=== PATIENT | male | born 1990 | race Caucasian/White ===

== ENCOUNTER 2024-03-06 20:27 | Observation (INO) | payer BC ==
--- NOTE | 2024-03-06 20:49 | ED ---
General Adult HPI - General Chief complaint: Abdominal Pain Stated complaint: abd pain Time Seen by Provider: 03/06/24 20:36 Source: patient, EMS, RN notes reviewed, old records reviewed Mode of arrival: EMS Limitations: no limitations - History of Present Illness Initial comments: Patient is a 33-year-old male presenting to the emergency department as a transfer from [facility]. Patient had abdominal discomfort starting this morning, progressively worsening since that time. Discomfort does increase with movement. Discomfort is currently 7/10. Patient occasionally has minimal nausea. No fevers however has had some chills. Patient did have elevated white blood cell count and CT scan concerning for early developing appendicitis - Related Data Allergies Allergy/AdvReac Type Severity Reaction Status Date / Time No Known Allergies Allergy Verified 03/06/24 20:37 Review of Systems ROS Statement: Those systems with pertinent positive or pertinent negative responses have been documented in the HPI. ROS Other: All systems not noted in ROS Statement are negative. Constitutional: Reports: chills. Denies: fever Eyes: Denies: eye pain Gastrointestinal: Reports: as per HPI, abdominal pain, nausea. Denies: vomiting Musculoskeletal: Denies: back pain Past Medical History Past Medical History: No Reported History Past Surgical History: Hernia Repair Additional Past Surgical History / Comment(s): hernia surgery in 2011 Smoking Status: Current every day smoker Past Alcohol Use History: None Reported Past Drug Use History: None Reported General Exam Limitations: no limitations General appearance: alert, in no apparent distress Head exam: Present: normocephalic Eye exam: Present: normal appearance Neck exam: Present: normal inspection Respiratory exam: Present: normal lung sounds bilaterally Cardiovascular Exam: Present: regular rate, normal rhythm GI/Abdominal exam: Present: soft, tenderness (Moderate tenderness right lower abdomen), guarding (Right lower abdomen), normal bowel sounds. Absent: distended, rebound, rigid, pulsatile mass Extremities exam: Present: normal inspection Neurological exam: Present: alert Psychiatric exam: Present: normal affect, normal mood Skin exam: Present: normal color Course Vital Signs 03/06/24 20:28 Temperature 98.4 F Pulse Rate 97 Respiratory 18 Rate Blood Pressure 121/67 O2 Sat by Pulse 98 Oximetry Medical Decision Making - Medical Decision Making Was pt. sent in by a medical professional or institution (, PA, CUSTOMER DATA TECHNICIAN, urgent care, hospital, or usp...) When possible be specific @ -Patient was sent from [facility] Did you speak to anyone other than the patient for history (EMS, parent, family, police, friend...)? What history was obtained from this source @ -I did speak with transferring physician Dr. Reynolds who did provide history Did you review nursing and triage notes (agree or disagree)? Why? @ -I reviewed and agree with nursing and triage notes Were old charts reviewed (outside hosp., previous admission, EMS record, old EKG, old radiological studies, urgent care reports/EKG's, usp records)? Report findings @ -Chart reviewed from [facility] Differential Diagnosis (chest pain, altered mental status, abdominal pain women, abdominal pain men, vaginal bleeding, weakness, fever, dyspnea, syncope, headac he, dizziness, GI bleed, back pain, seizure, CVA, palpatations, mental health, musculoskeletal)? @ -Differential Abdominal Pain Men: Appendicitis, cholecystitis, diverticulosis, ischemic bowel, pancreatitis, hepatitis, UTI, gastroenteritis, AAA, incarcerated hernia, bowel obstruction, constipation, inflammatory bowel, hepatitis, peptic ulcer disease, splenic infarction, perforated viscus, testicular torsion, this is not meant to be an all-inclusive list EKG interpreted by me (3pts min.). @ -As above X-rays interpreted by me (1pt min.). @ -None done CT interpreted by me (1pt min.). @ -None done U/S interpreted by me (1pt. min.). @ -None done What testing was considered but not performed or refused? (CT, X-rays, U/S, labs)? Why? @ -None What meds were considered but not given or refused? Why? @ -None Did you discuss the management of the patient with other professionals (professionals i.e. , PA, CUSTOMER DATA TECHNICIAN, lab, RT, psych nurse, social work job titles, teletype technician, teacher, homicide squad commanding officer, nurse case management)? Give summary @ -Case was also discussed with Dr. Mcgregor who will admit for surgical call. He would like patient to remain n.p.o. and antibiotics continued. Was smoking cessation discussed for >3mins.? @ -No Was critical care preformed (if so, how long)? @ -No Were there social determinants of health that impacted care today? How? (Homelessness, low income, unemployed, alcoholism, drug addiction, transportation, low edu. Level, literacy, decrease access to med. care, long term, rehab)? @ -No Was there de-escalation of care discussed even if they declined (Discuss DNR or withdrawal of care, Hospice)? DNR status @ -No What co-morbidities impacted this encounter? (DM, HTN, Smoking, COPD, CAD, Cancer, CVA, ARF, Chemo, Hep., AIDS, mental health diagnosis, sleep apnea, morbid obesity)? @ -None Was patient admitted / discharged? Hospital course, mention meds given and route, prescriptions, significant lab abnormalities, going to OR and other pertinent info. @ -Patient presents as a transfer from [facility] with concern for appendicitis. Chart reviewed. Patient updated. Patient will be admitted, admission orders written. Undiagnosed new problem with uncertain prognosis? @ -No Drug Therapy requiring intensive monitoring for toxicity (Heparin, Nitro, Insulin, Cardizem)? @ -No Were any procedures done? @ -No Diagnosis/symptom? @ -Appendicitis Acute, or Chronic, or Acute on Chronic? @ -Acute Uncomplicated (without systemic symptoms) or Complicated (systemic symptoms)? @ -Default Side effects of treatment? @ -No Exacerbation, Progression, or Severe Exacerbation? @ -No Poses a threat to life or bodily function? How? (Chest pain, USA, NC, pneumonia, PE, COPD, DKA, ARF, appy, cholecystitis, CVA, Diverticulitis, Homicidal, Suicidal, threat to staff... and all critical care pts) @ -No Disposition Clinical Impression: Acute appendicitis Disposition: ADMITTED IP TO THIS HOSP Is patient prescribed a controlled substance at d/c from ED?: No Referrals: None,Stated [Primary Care Provider] - 1-2 days Time of Disposition: 21:00
[2024-03-06] MEDS ORDERED: NALOXONE 0.4 MG/ML 1 ML VIAL IV PRN (21:00)
[2024-03-06] MEDS: HYDROmorphone 1 MG/ML 1 ML SYRINGE IVP PRN (21:21)
[2024-03-06] MEDS: SODIUM CHLORIDE 0.9% 1,000 ML IV SCH (21:28)
[2024-03-06] MEDS: ONDANSETRON 4 MG/2 ML VIAL IVP PRN (21:52)
[2024-03-06] MEDS: PIPERACILLIN-TAZOBACTAM 3.375 GM in SODIUM CHLORIDE 0.9% 100 ML IVPB SCH (23:38)
[2024-03-07] MEDS: PANTOPRAZOLE 40 MG/10 ML VIAL IV SCH (07:47)
[2024-03-07] MEDS: IV FLUID CONTINUATION 900 ML IV ONE (08:07)
--- NOTE | 2024-03-07 08:14 | P.GSHP ---
History of Present Illness H&P Date: 03/07/24 Chief Complaint: Right lower quadrant pain Is a 33-year-old male who has complaints of lower quadrant pain for 24 hours. Patient was worked up found to have evidence of acute appendicitis on CT. Past Medical History Past Medical History: No Reported History Past Surgical History: Hernia Repair Additional Past Surgical History / Comment(s): hernia surgery in 2011 Smoking Status: Current every day smoker Past Alcohol Use History: None Reported Past Drug Use History: None Reported Medications and Allergies Home Medications Medication Instructions Recorded Confirmed Type No Known Home Medications 03/07/24 03/07/24 History Allergies Allergy/AdvReac Type Severity Reaction Status Date / Time No Known Allergies Allergy Verified 03/06/24 20:37 Surgical - Exam Vital Signs Temp Pulse Resp BP Pulse Ox 98.4 F 97 18 121/67 98 03/06/24 20:28 03/06/24 20:28 03/06/24 20:28 03/06/24 20:28 03/06/24 20:28 - General well developed, well nourished, no distress - Eyes PERRL - ENT normal pinna - Neck no masses - Respiratory normal expansion - Cardiovascular Rhythm: regular - Abdomen Right lower quadrant pain Abdomen: soft Assessment and Plan Assessment: Acute appendicitis. Will perform laparoscopic appendectomy.
[2024-03-07] MEDS: diphenhydrAMINE 50 MG/ML 1 ML VIAL IVP STA (08:21)
[2024-03-07] MEDS: METOCLOPRAMIDE 5 MG/ML 2 ML VIAL IVP STA (08:22)
[2024-03-07] MEDS: DEXAMETHASONE SOD PHOSPHATE 4 MG/ML 1 ML VIAL IM STA (08:22)
[2024-03-07] MEDS: FAMOTIDINE 20 MG/2 ML VIAL IV STA (08:23)
[2024-03-07] MEDS: SCOPOLAMINE 1 MG/72 HR PATCH TRANSDERM STA (08:25)
[2024-03-07] MEDS: HEPARIN SODIUM,PORCINE 5,000 UNIT/ML 1 ML VIAL SQ STA (08:26)
[2024-03-07] MEDS ORDERED: ROCURONIUM 10 MG/ML (5 ML VIAL) IV ONE (08:48)
[2024-03-07] MEDS ORDERED: KETAMINE HCL IN 0.9 % NACL 50 MG/5 ML SYRINGE ONE (08:48)
[2024-03-07] MEDS ORDERED: PROPOFOL 10 MG/ML 20 ML VIAL IV ONE (08:48)
[2024-03-07] MEDS ORDERED: SUCCINYLCHOLINE CHLORIDE 200 MG/10 ML VIAL IV ONE (08:48)
[2024-03-07] MEDS ORDERED: fentaNYL (PF) 50 MCG/ML 2 ML AMP ONE (08:48)
[2024-03-07] MEDS ORDERED: KETOROLAC 15 MG/ML 1 ML VIAL ONE (08:48)
[2024-03-07] MEDS ORDERED: LIDOCAINE 1% INJ 10MG/ML (20 ML MDV) ONE (08:48)
[2024-03-07] MEDS ORDERED: SUGAMMADEX SODIUM 200 MG/2 ML SDV IV ONE (08:48)
[2024-03-07] MEDS: LIDOCAINE 1%-EPI 1:100,000 20 ML VIAL SQ ONE (09:11)
[2024-03-07] MEDS: LACTATED RINGERS 1,000 ML IV ONE (09:18)
[2024-03-07] MEDS ORDERED: HYDROmorphone 0.5 MG/0.5 ML SYRINGE IVP PRN (09:41)
[2024-03-07] MEDS ORDERED: ONDANSETRON 4 MG/2 ML VIAL IVP PRN (09:41)
[2024-03-07] MEDS ORDERED: HYDROcodone/APAP 5-325MG 1 EACH TAB PO PRN (09:41)
[2024-03-07] MEDS ORDERED: NALOXONE 0.4 MG/ML 1 ML VIAL IV PRN (09:41)
--- NOTE | 2024-03-07 09:41 | P.OP ---
Date of Procedure: 03/07/24 Preoperative Diagnosis: Acute appendicitis Postoperative Diagnosis: Acute appendicitis with microperforation Procedure(s) Performed: Laparoscopic appendectomy Anesthesia: CRISTOPHER Surgeon: Se Ventura Estimated Blood Loss (ml): 5 Pathology: other (Appendix) Condition: stable Disposition: PACU Operative Findings: Inflamed appendix with microperforation near base Description of Procedure: R the patient's placed on the operating table in the supine position. The patient received general anesthesia. The abdomen was prepped and draped in the usual sterile fashion. The skin was anesthetized 1% local Xylocaine at the trocar sites. Using an 11 blade the skin was incised at the umbilicus. The umbilicus was grasped with a [place] clamp and then a Veress needle was placed into the peritoneal cavity. Position of the Veress needle was confirmed with po sitive drop test. After adequate insufflation a 5 mm trocar was placed into the peritoneal cavity. The abdomen was further insufflated. And then the laparoscope was placed in the peritoneal cavity. Next a 5 mm trocar was placed in the midline suprapubic position. And then a 10 mm trocar was placed in the midline epigastric position. The patient was rotated with the right side up and in Trendelenburg. The appendix was visualized. The appendix appeared to be inflamed. The appendix was grasped and then using the Harmonic scissors the mesoappendix was divided. A PDS Endoloop was then placed around the base of the appendix. And then the appendix was divided using Harmonic scissors. The appendix was placed into an Endo Catch and brought out through the 10 mm trocar site. The abdomen was irrigated. There is no bleeding seen. The trochars withdrawn. The skin was closed interrupted 3-0 Monocryl suture. Dermabond dressing was applied. Patient was sent to recovery room in stable condition.
[2024-03-07] MEDS: HYDROmorphone 0.5 MG/0.5 ML SYRINGE IVP PRN (11:06)
[2024-03-07] MEDS: LACTATED RINGERS 1,000 ML IV SCH (13:25)
[2024-03-07] MEDS: KETOROLAC 15 MG/ML 1 ML VIAL IVP SCH (13:34)
[2024-03-07 19:36] LABS: HCT 41.8 % (39.6-50.0); HGB 13.9 g/dL (13.0-17.0); MCH 30.3 pg (27.0-32.0); MCHC 33.3 g/dL (32.0-37.0); MCV 91.3 FL (80.0-97.0); Mean Platelet Volume 10.9 FL (9.5-12.2); NRBC Per 100 WBC 0 X 10*3/uL (0.00-0.01); Platelet Count 291 X 10*3/uL (140-440); RBC 4.58 X 10*6/uL (4.40-5.60); RDW 13.2 % (11.5-14.5); WBC 32.29 X 10*3/uL (4.50-10.00)
[2024-03-07 20:16] LABS: Basophils # (A) 0.05 X 10*3/uL (0.00-0.10); Basophils % (A) 0.2 %; Eosinophils # (A) 0 X 10*3/uL (0.04-0.35); Eosinophils % (A) 0 %; Lymphocytes # (A) 0.83 X 10*3/uL (0.90-5.00); Lymphocytes % (A) 2.6 %; Monocytes # (A) 2.14 X 10*3/uL (0.20-1.00); Monocytes % (A) 6.6 %; Neutrophils # (A) 28.88 X 10*3/uL (1.80-7.70); Neutrophils % (A) 89.4 %; RBC Morphology Normal (Normal)
[2024-03-07 20:53] LABS: BUN/Creat Ratio 20.86 Ratio (12.00-20.00); Blood Urea Nitrogen 14.6 mg/dL (9.0-27.0); Chloride 105 mmol/L (96-109); Glucose 136 mg/dL (70-110); Potassium 4.7 mmol/L (3.5-5.5); Sodium 139 mmol/L (135-145)
[2024-03-07 20:54] LABS: ALT 16 U/L (10-49); AST 14 U/L (14-35); Albumin 4.1 g/dL (3.8-4.9); Albumin/Globulin Ratio 1.86 Ratio (1.60-3.17); Alkaline Phosphatase 74 U/L (41-126); Calcium 9.1 mg/dL (8.7-10.3); Carbon Dioxide 22.1 mmol/L (21.6-31.8); Globulin 2.2 g/dL (1.6-3.3); Total Bilirubin 0.6 mg/dL (0.3-1.2); Total Protein 6.3 g/dL (6.2-8.2)
[2024-03-07] MEDS: METOCLOPRAMIDE 5 MG/ML 2 ML VIAL IVP PRN (21:33)
[2024-03-08 05:32] LABS: Prothrombin Time 11.1 sec (10.0-12.5)
--- NOTE | 2024-03-08 07:26 | P.CONS ---
History of Present Illness - Reason for Consult Consult date: 03/07/24 Perforated appendicitis Requesting physician: Se Ventura - Chief Complaint Abdominal pain x 1 day - History of Present Illness Patient is a 33-year-old male with no significant past medical history current everyday smoker presenting to [facility] for evaluation of abdominal pain that started the day before presentation to the ER patient initially thought it was mostly gas however the patient symptom persisted and has progressively got worse mostly to the right side of the normal area describing it to be sharp about 7 out of 10 without any radiation with associated nausea but no vomiting and did have some chills patient was evaluated outside facility with the patient did have a elevated white count CT was concerning for early developing appendicitis patient was transferred to [facility] for surgical treatment patient was taken to the OR noticed to have acute appendicitis with microperforation status post laparoscopic appendectomy patient has been admitted to the hospital infectious he was consulted for further management of antibiotic therapy patient on presentation to this hospital has been afebrile patient was not tachycardic or hypotensive and not hypoxic no need for supplemental oxygen he did have white count of 32,000 with a left shift creatinine 0.7 electrolytes are normal liver enzymes are normal Review of Systems Positive point and negatives has been mentioned in the HPI, complete review of systems was performed and all other systems are negative Past Medical History Past Medical History: No Reported History Past Surgical History: Hernia Repair Additional Past Surgical History / Comment(s): hernia surgery in 2011 Smoking Status: Current every day smoker Past Alcohol Use History: None Reported Past Drug Use History: None Reported Medications and Allergies Home Medications Medication Instructions Recorded Confirmed Type No Known Home Medications 03/07/24 03/07/24 History Allergies Allergy/AdvReac Type Severity Reaction Status Date / Time No Known Allergies Allergy Verified 03/07/24 08:38 Physical Exam Vitals: Vital Signs Temp Pulse Pulse Pulse Resp BP BP 03/07/24 11:16 84 18 104/72 03/07/24 11:00 80 18 103/67 03/07/24 10:46 103 H 18 116/64 03/07/24 10:30 99 18 113/63 03/07/24 10:15 99 18 119/70 03/07/24 10:00 101 H 18 115/67 03/07/24 09:45 109 H 18 136/67 03/07/24 09:38 98.8 F 121 H 20 149/72 03/07/24 08:08 98.5 F 113 H 16 147/76 03/07/24 06:30 104 H 18 145/126 03/07/24 03:44 98.5 F 75 19 125/88 03/06/24 23:38 89 18 129/83 03/06/24 22:40 90 18 126/78 03/06/24 20:28 98.4 F 97 18 121/67 Pulse Ox 03/07/24 11:16 98 03/07/24 11:00 98 03/07/24 10:46 98 03/07/24 10:30 98 03/07/24 10:15 100 03/07/24 10:00 100 03/07/24 09:45 100 03/07/24 09:38 100 03/07/24 08:08 96 03/07/24 06:30 97 03/07/24 03:44 97 03/06/24 23:38 97 03/06/24 22:40 98 03/06/24 20:28 98 Intake and Output 03/06/24 03/07/24 03/07/24 22:59 06:59 14:59 Intake Total 1950 Output Total 5 Balance 1944 Intake: IV 1949 Output: Estimated Blood Loss 5 Other: Weight 111.13 kg GENERAL DESCRIPTION: Middle-aged male lying in bed, no distress. No tachypnea or accessory muscle of respiration use. HEENT: Shows Pallor , no scleral icterus. Oral mucous membrane is dry. No pharyngeal erythema or thrush NECK: Trachea central, no thyromegaly. LUNGS: Unlabored breathing. Clear to auscultation anteriorly. No wheeze or crackle. HEART: S1, S2, regular rate and rhythm. No loud murmur ABDOMEN: Soft, mild tenderness , no guarding or rigidity, no organomegaly EXTREMITIES: No edema of feet. SKIN: No rash, no masses palpable. NEUROLOGICAL: The patient is awake, alert, oriented x3, mood and affect normal. Results CBC & Chem 7: 03/07/24 14:26 03/07/24 14:26 Assessment and Plan (1) Acute perforated appendicitis Current Visit: Yes Status: Acute Code(s): K35.32 - AC APPENDICITIS W PERF, LOC PERITONITIS, & GANGR, W/O ABSCS SNOMED Code(s): 539532087 (2) Peritonitis Current Visit: Yes Status: Acute Code(s): K65.9 - PERITONITIS, UNSPECIFIED SNOMED Code(s): 18780654 (3) Leukocytosis Current Visit: Yes Status: Acute Code(s): D72.829 - ELEVATED WHITE BLOOD CELL COUNT, UNSPECIFIED SNOMED Code(s): 695797147 Plan: 1patient presented to hospital with abdominal pain and this patient who did have elevated white count abnormal CT suggestive of appendicitis in this patient who is s/p laparoscopic appendectomy with evidence of appendicitis with microperforation will need to cover for the enteric gram-negative both aerobes and anaerobes 2-Zosyn 3.375 g every 8 hours and will monitor his clinical course closely Family at the bedside questions and concerns We will follow on clinical condition and cultures to further adjust medication if needed Thank you for this consultation we will follow the patient along with you Dictation was produced using blinkbox dictation software. please excuse any grammatical, word or spelling errors. Time with Patient: Greater than 30
[2024-03-08] MEDS: ENOXAPARIN 40 MG/0.4 ML SYRINGE SQ SCH (09:18)
[2024-03-08] MEDS: ACETAMINOPHEN TAB 325 MG TAB PO PRN (09:18)
[2024-03-08 09:53] LABS: Basophils % (A) 0 %; Eosinophils # (A) 0.1 k/uL (0-0.7); Eosinophils % (A) 1 %; HCT 40.6 % (39.0-53.0); Lymphocytes # (A) 3.5 k/uL (1.0-4.8); Lymphocytes % (A) 21 %; MCH 30.2 pg (25.0-35.0); MCHC 31.9 g/dL (31.0-37.0); MCV 94.8 fL (80.0-100.0); Mean Platelet Volume 8.7; Monocytes # (A) 0.6 k/uL (0-1.0); Monocytes % (A) 4 %; Neutrophils # (A) 12.6 k/uL (1.3-7.7); Neutrophils % (A) 74 %; Platelet Count 257 k/uL (150-450); RBC 4.29 m/uL (4.30-5.90); RDW 13.4 % (11.5-15.5)
--- NOTE | 2024-03-08 15:49 | P.PN ---
Subjective Progress Note Date: 03/08/24 CHIEF COMPLAINT: Acute appendicitis HISTORY OF PRESENT ILLNESS: Patient postop day #1 status post laparoscopic appendectomy. Pain is controlled. Tolerating diet. Having flatus. He has been up and ambulating. Denies any difficulty urinating. Afebrile. WBC is down from 13-17 Hgb 13 Patient seen and examined with Dr. Ventura PHYSICAL EXAM: VITAL SIGNS: Reviewed. GENERAL: Well-developed in no acute distress. ABDOMEN: Soft. Nondistended. Incision sites clean dry and intact NEUROLOGIC: Alert and oriented. Cranial nerves II through XII grossly intact. ASSESSMENT: 1. Acute appendicitis with microperforation 2. Leukocytosis PLAN: -Continue antibiotics. Patient being seen by infectious disease. -Repeat CBC in a.m. -Continue IV fluids -Continue pain management -Encourage patient to increase activity level -Encourage patient to use incentive spirometer -GI prophylaxis Protonix and DVT prophylaxis Lovenox Physician Pin Maker note has been reviewed by physician. Signing provider agrees with the documented findings, assessment, and plan of care. Objective - Vital Signs Vital signs: Vital Signs Temp 98.5 F 03/08/24 14:15 Pulse 64 03/08/24 14:15 Resp 14 03/08/24 14:15 BP 108/73 03/08/24 14:15 Pulse Ox 98 03/08/24 14:15 FiO2 Intake & Output 03/07/24 03/08/24 03/08/24 18:59 06:59 18:59 Intake Total 2668 236 Output Total 5 Balance 2663 236 Weight 111.13 kg Intake: IV 2550 Oral 118 236 Output: Estimated Blood Loss 5 Other: # Voids 1 1 3 # Bowel Movements 2 - Labs CBC & Chem 7: 03/08/24 09:02 03/07/24 14:26 Labs: Abnormal Lab Results - Last 24 Hours (Table) 03/07/24 03/07/24 03/08/24 Range/Units 14:26 14:26 09:02 WBC 32.29 H 17.0 H (4.50-10.00) X 10*3/uL RBC 4.29 L (4.30-5.90) m/uL Immature Gran # 0.39 H (0.00-0.04) X 10*3/uL Neutrophils # 28.88 H 12.6 H (1.80-7.70) X 10*3/uL Lymphocytes # 0.83 L (0.90-5.00) X 10*3/uL Monocytes # 2.14 H (0.20-1.00) X 10*3/uL Eosinophils # 0 L (0.04-0.35) X 10*3/uL BUN/Creatinine Ratio 20.86 H (12.00-20.00) Ratio Glucose 136 H (70-110) mg/dL
[2024-03-09 03:27] VITALS: TEMP 98.2
[2024-03-09 05:41] LABS: Basophils % (A) 0 %; Eosinophils # (A) 0.2 k/uL (0-0.7); Eosinophils % (A) 1 %; HCT 35.9 % (39.0-53.0); HGB 12.1 gm/dL (13.0-17.5); Lymphocytes # (A) 3.2 k/uL (1.0-4.8); Lymphocytes % (A) 24 %; MCHC 33.7 g/dL (31.0-37.0); MCV 95.1 fL (80.0-100.0); Monocytes # (A) 0.9 k/uL (0-1.0); Monocytes % (A) 7 %; Neutrophils # (A) 8.9 k/uL (1.3-7.7); Neutrophils % (A) 66 %; Platelet Count 227 k/uL (150-450); RBC 3.78 m/uL (4.30-5.90); RDW 13.3 % (11.5-15.5); WBC 13.5 k/uL (3.8-10.6)
--- NOTE | 2024-03-09 05:51 | P.CONS ---
History of Present Illness - Reason for Consult Consult date: 03/08/24 Medical management status post appendectomy - History of Present Illness This is a 33-year-old male who was admitted under surgery services who presented to the emergency department with severe abdominal pain that woke him up out of his sleep. Patient reports he had no prior pain noted in the abdomen and had worked the night before. Patient works midnight shift. Patient reports he follows with primary care provider out of the [facility] and reports of no significant history. Patient does smoke cigarettes and occasionally drinks alcohol and denies any other illicit drug use. Of note patient's white count wa s 32 on admission and patient mentioned he has had previous elevated white counts of unknown etiology. Would recommend outpatient follow-up with hematology for further evaluation. White count is trending down and 17 today and patient is afebrile status post laparoscopic appendectomy. Patient reports to feeling well and denies any significant discomfort. Patient reports is passing gas with no bowel movement as of yet. Patient is voiding with no difficulties and denies any nausea or vomiting. Incentive spirometer at the bedside and encouraged to use at least 10 times every hour while awake along with getting up with frequent walking around the halls. REVIEW OF SYSTEMS: CONSTITUTIONAL: No fever, no malaise, no fatigue. HEENT: No recent visual problems or hearing problems. Denied any sore throat. CARDIOVASCULAR: No chest pain, orthopnea, PND, no palpitations, no syncope. PULMONARY: No shortness of breath, no cough, no hemoptysis. GASTROINTESTINAL: No diarrhea, no nausea, no vomiting, reports abdominal pain that has resolved NEUROLOGICAL: No headaches, no weakness, no numbness. HEMATOLOGICAL: Denies any bleeding or petechiae. GENITOURINARY: Denies any burning micturition, frequency, or urgency. MUSCULOSKELETAL/RHEUMATOLOGICAL: Denies any joint pain, swelling, or any muscle pain. ENDOCRINE: Denies any polyuria or polydipsia. The rest of the 14-point review of systems is negative. PHYSICAL EXAMINATION: GENERAL: The patient is alert and oriented x3, not in any acute distress. Well developed, well nourished. obese HEENT: Pupils are round and equally reacting to light. EOMI. No scleral icterus. No conjunctival pallor. Normocephalic, atraumatic. No pharyngeal erythema. No thyromegaly. CARDIOVASCULAR: S1 and S2 present. No murmurs, rubs, or gallops. PULMONARY: Chest is clear to auscultation, no wheezing or crackles. ABDOMEN: Soft, minimally tender, nondistended, normoactive bowel sounds. No palpable organomegaly. MUSCULOSKELETAL: No joint swelling or deformity. EXTREMITIES: No cyanosis, clubbing, or pedal edema. NEUROLOGICAL: Gross neurological examination did not reveal any focal deficits. SKIN: No rashes. Assessment: Abdominal pain, status post laparoscopic appendectomy Leukocytosis secondary to above. Patient reports has had elevated white count previously and will have patient follow-up with hematology outpatient Continued ongoing nicotine dependence Obesity with a BMI 34.2 GI prophylaxis DVT prophylaxis Full code Plan: Patient is admitted under surgery services status post laparoscopic appendectomy, postop day 1 doing relatively well White count remains elevated although his trending down and currently 17. Patient is maintained on antibiotics and infectious diseases consulted Blood sugar was elevated and will obtain a hemoglobin A1c as patient reports no significant history Encouraged incentive spirometer use at least 10 times every hour while awake Follow-up on repeat labs Encouraged increased activity as tolerated Thank you kindly for this consultation, we will continue to follow with general surgery during hospitalization The impression and plan of care has been dictated by Citlaly Gifford, Nurse Practitioner as directed. Dr. Suzanne MD I have performed a history and examination and MDM of this patient, discussed the same with the dictator, and agree with the dictator's assessment and plan as written ,documented as a scribe. Based on total visit time, I have performed more than 50% of the visit. Past Medical History Past Medical History: No Reported History History of Any Multi-Drug Resistant Organisms: None Reported Past Surgical History: Hernia Repair Additional Past Surgical History / Comment(s): hernia surgery in 2011 Past Anesthesia/Blood Transfusion Reactions: No Reported Reaction Smoking Status: Current every day smoker Past Alcohol Use History: None Reported Past Drug Use History: None Reported Medications and Allergies Home Medications Medication Instructions Recorded Confirmed Type No Known Home Medications 03/07/24 03/07/24 History Allergies Allergy/AdvReac Type Severity Reaction Status Date / Time No Known Allergies Allergy Verified 03/07/24 08:38 Physical Exam Vitals: Vital Signs Temp Pulse Pulse Resp BP Pulse Ox 03/08/24 07:05 97.8 F 50 L 15 108/70 99 03/08/24 02:58 98.1 F 61 17 125/72 96 03/07/24 19:58 99.0 F 91 15 96/61 96 03/07/24 14:03 85 16 101/65 95 03/07/24 13:32 85 16 113/69 96 03/07/24 13:25 84 117/69 96 03/07/24 12:30 74 18 116/66 97 03/07/24 12:00 92 18 109/56 97 03/07/24 11:30 92 18 91/53 98 03/07/24 11:16 84 18 104/72 98 03/07/24 11:00 80 18 103/67 98 03/07/24 10:46 103 H 18 116/64 98 03/07/24 10:30 99 18 113/63 98 03/07/24 10:15 99 18 119/70 100 03/07/24 10:00 101 H 18 115/67 100 03/07/24 09:45 109 H 18 136/67 100 03/07/24 09:38 98.8 F 121 H 20 149/72 100 Intake and Output 03/07/24 03/08/24 03/08/24 22:59 06:59 14:59 Intake Total 118 118 Balance 118 118 Intake: Oral 118 118 Other: # Voids 1 1 Weight 111.13 kg Results CBC & Chem 7: 03/08/24 09:02 03/07/24 14:26 Labs: Abnormal Lab Results - Last 24 Hours (Table) 03/07/24 03/07/24 Range/Units 14:26 14:26 WBC 32.29 H (4.50-10.00) X 10*3/uL Immature Gran # 0.39 H (0.00-0.04) X 10*3/uL Neutrophils # 28.88 H (1.80-7.70) X 10*3/uL Lymphocytes # 0.83 L (0.90-5.00) X 10*3/uL Monocytes # 2.14 H (0.20-1.00) X 10*3/uL Eosinophils # 0 L (0.04-0.35) X 10*3/uL BUN/Creatinine Ratio 20.86 H (12.00-20.00) Ratio Glucose 136 H (70-110) mg/dL
--- NOTE | 2024-03-09 07:42 | P.PN ---
Subjective Progress Note Date: 03/08/24 Principal diagnosis: Reason for follow-up is leukocytosis and acute microperforated appendicitis Patient is a 33-year-old male no significant past medical history presented to the hospital with abdominal pain has been diagnosed with acute appendicitis with microperforation status post laparoscopic appendectomy. On today's evaluation that is 03/08/2024, the patient continues to be afebrile, the patient is on room air and breathing comfortably, the Pt denies having any chest pain or cough, the patient abdominal pain has slightly decreased intensity some nausea no vomiting did have a bowel movement. Patient white count was down to 17,000 Objective - Vital Signs Vital signs: Vital Signs Temp 97.8 F 03/08/24 07:05 Pulse 50 L 03/08/24 07:05 Resp 15 03/08/24 07:05 BP 108/70 03/08/24 07:05 Pulse Ox 99 03/08/24 07:05 FiO2 Intake & Output 03/07/24 03/08/24 03/08/24 18:59 06:59 18:59 Intake Total 2668 118 Output Total 5 Balance 2663 118 Weight 111.13 kg Intake: IV 2550 Oral 118 118 Output: Estimated Blood Loss 5 Other: # Voids 1 1 - Exam GENERAL DESCRIPTION: Middle-age male lying in bed in no distress RESPIRATORY SYSTEM: Unlabored breathing , decreased breath sounds at bases HEART: S1 S2 regular rate and rhythm , ABDOMEN: Soft , mild tenderness EXTREMITIES: No edema feet - Labs CBC & Chem 7: 03/09/24 05:07 03/07/24 14:26 Labs: Abnormal Lab Results - Last 24 Hours (Table) 03/07/24 03/07/24 03/08/24 Range/Units 14:26 14:26 09:02 WBC 32.29 H 17.0 H (4.50-10.00) X 10*3/uL RBC 4.29 L (4.30-5.90) m/uL Immature Gran # 0.39 H (0.00-0.04) X 10*3/uL Neutrophils # 28.88 H 12.6 H (1.80-7.70) X 10*3/uL Lymphocytes # 0.83 L (0.90-5.00) X 10*3/uL Monocytes # 2.14 H (0.20-1.00) X 10*3/uL Eosinophils # 0 L (0.04-0.35) X 10*3/uL BUN/Creatinine Ratio 20.86 H (12.00-20.00) Ratio Glucose 136 H (70-110) mg/dL Assessment and Plan (1) Acute perforated appendicitis Current Visit: Yes Status: Acute Code(s): K35.32 - AC APPENDICITIS W PERF, LOC PERITONITIS, & GANGR, W/O ABSCS SNOMED Code(s): 500576919 (2) Peritonitis Current Visit: Yes Status: Acute Code(s): K65.9 - PERITONITIS, UNSPECIFIED SNOMED Code(s): 68304680 (3) Leukocytosis Current Visit: Yes Status: Acute Code(s): D72.829 - ELEVATED WHITE BLOOD CELL COUNT, UNSPECIFIED SNOMED Code(s): 539905589 Plan: 1patient presented to hospital with abdominal pain and this patient who did have elevated white count abnormal CT suggestive of appendicitis in this patient who is s/p laparoscopic appendectomy with evidence of appendicitis with microperforation will need to cover for the enteric gram-negative both aerobes and anaerobes 2-patient white count is trending down and is afebrile 3-patient to continue with Zosyn 3.375 g every 8 hours hopefully transition to oral once his white count normalized Dictation was produced using [employer] dictation software. please excuse any grammatical, word or spelling errors. Time with Patient: Less than 30
[2024-03-09 08:08] VITALS: BP 107/70; PULSE 67; RESP 16
--- NOTE | 2024-03-09 12:41 | P.PN ---
Subjective Progress Note Date: 03/09/24 Principal diagnosis: Reason for follow-up is leukocytosis and acute microperforated appendicitis Patient is a 33-year-old male no significant past medical history presented to the hospital with abdominal pain has been diagnosed with acute appendicitis with microperforation status post laparoscopic appendectomy. On today's evaluation that is 03/09/2024, Patient is afebrile patient is currently on room air and denies having any shortness of breath, the patient denies any chest pain or cough, the patient denies any nausea vomiting abdominal pain has decreased in intensity mention feeling better and has been insisting on going home. Patient white count is 13.5 Objective - Vital Signs Vital signs: Vital Signs Temp 98.2 F 03/09/24 07:00 Pulse 67 03/09/24 07:00 Resp 16 03/09/24 07:00 BP 107/70 03/09/24 07:00 Pulse Ox 99 03/09/24 07:00 FiO2 Intake & Output 03/08/24 03/09/24 03/09/24 18:59 06:59 18:59 Intake Total 354 240 118 Balance 354 240 118 Intake: Oral 354 240 118 Other: # Voids 3 2 # Bowel Movements 2 - Exam GENERAL DESCRIPTION: Middle-age male lying in bed in no distress RESPIRATORY SYSTEM: Unlabored breathing , decreased breath sounds at bases HEART: S1 S2 regular rate and rhythm , ABDOMEN: Soft , mild tenderness EXTREMITIES: No edema feet - Labs CBC & Chem 7: 03/09/24 05:07 03/07/24 14:26 Labs: Abnormal Lab Results - Last 24 Hours (Table) 03/09/24 Range/Units 05:07 WBC 13.5 H (3.8-10.6) k/uL RBC 3.78 L (4.30-5.90) m/uL Hgb 12.1 L (13.0-17.5) gm/dL Hct 35.9 L (39.0-53.0) % Neutrophils # 8.9 H (1.3-7.7) k/uL Assessment and Plan (1) Acute perforated appendicitis Current Visit: Yes Status: Acute Code(s): K35.32 - AC APPENDICITIS W PERF, LOC PERITONITIS, & GANGR, W/O ABSCS SNOMED Code(s): 563748626 (2) Peritonitis Current Visit: Yes Status: Acute Code(s): K65.9 - PERITONITIS, UNSPECIFIED SNOMED Code(s): 74657426 (3) Leukocytosis Current Visit: Yes Status: Acute Code(s): D72.829 - ELEVATED WHITE BLOOD DEMETRA L COUNT, UNSPECIFIED SNOMED Code(s): 606132053 Plan: 1patient presented to hospital with abdominal pain and this patient who did have elevated white count abnormal CT suggestive of appendicitis in this patient who is s/p laparoscopic appendectomy with evidence of appendicitis with microperforation will need to cover for the enteric gram-negative both aerobes and anaerobes 2-patient white count is trending down and patient remains to be afebrile 3-patient is insisting on going home he has been advised to stay in the hospital till white count normalized however the patient mention it is normal for him and his family to have elevated white count and has been really pushing to go home discussed with the surgical team we will suggest a 10-day course of oral Ceftin and Flagyl patient will advise if any fever worsening abdominal pain or vomiting, he needs to come back to the hospital Dictation was produced using [employer] dictation software. please excuse any grammatical, word or spelling errors. Time with Patient: Less than 30
--- NOTE | 2024-03-09 12:45 | P.DS ---
Providers Date of admission: 03/06/24 21:01 Expected date of discharge: 03/09/24 Attending physician: Se Ventura Consults: 03/07/24 09:41 Consult Physician Routine Consulting Provider: Rehana Medellin Consult Reason/Comments: Medical management Do you want consulting provider notified?: Yes Consult Physician Routine Consulting Provider: Erica Ruiz Consult Reason/Comments: Appendicitis Do you want consulting provider notified?: Yes Primary care physician: Stated None Hospital Course: Discharge diagnosis 1. Acute appendicitis with microperforation Hospital course This is a 33-year-old male who presented with right lower quadrant abdominal pain. CT scan had shown evidence of appendicitis. Patient is status post laparoscopic appendectomy for acute appendicitis with microperforation. Patient tolerated surgery well. Pain is controlled. White count is trending downwards. He is having bowel movements. Tolerating diet. Afebrile. Has been seen by infectious disease and cleared for discharge with oral antibiotics. Patient stable for discharge. Please refer to chart for any further details. Physician Director Of Billing note has been reviewed by physician. Signing provider agrees with the documented findings, assessment, and plan of care. Patient Condition at Discharge: Stable Plan - Discharge Summary Discharge Rx Participant: No New Discharge Prescriptions: New cefUROXime axetiL [Ceftin] 500 mg PO BID 10 Days #20 tab metroNIDAZOLE [Flagyl] 500 mg PO TID 10 Days #30 tab HYDROcodone/APAP 5-325MG [[place] 5-325] 1 tab PO Q6HR PRN 3 Days #12 tab PRN Reason: Pain No Action No Known Home Medications Discharge Medication List No Known Home Medications 03/07/24 [History] HYDROcodone/APAP 5-325MG [[place] 5-325] 1 tab PO Q6HR PRN 3 Days #12 tab 03/09/24 [Rx] cefUROXime axetiL [Ceftin] 500 mg PO BID 10 Days #20 tab 03/09/24 [Rx] metroNIDAZOLE [Flagyl] 500 mg PO TID 10 Days #30 tab 03/09/24 [Rx] Follow up Appointment(s)/Referral(s): None,Stated [Primary Care Provider] - 1-2 days Se Ventura MD [STAFF PHYSICIAN] - 03/16/24 2:20 pm Activity/Diet/Wound Care/Special Instructions: No driving while taking [place] No lifting over 10 pounds shower daily. No soaking or tub baths for 2 weeks Very light activity until you are reevaluated at your follow up appointment with your surgeon Discharge Disposition: HOME SELF-CARE
--- NOTE | 2024-03-16 06:07 | P.PN ---
Subjective Progress Note Date: 03/09/24 - Reason for Consult Consult date: 03/08/24 Medical management status post appendectomy - History of Present Illness This is a 33-year-old male who was admitted under surgery services who presented to the emergency department with severe abdominal pain that woke him up out of his sleep. Patient reports he had no prior pain noted in the abdomen and had worked the night before. Patient works midnight shift. Patient reports he follows with primary care provider out of the [facility] and reports of no significant history. Patient does smoke cigarettes and occasionally drinks alcohol and denies any other illicit drug use. Of note patient's white count was 32 on admission and patient mentioned he has had previous elevated white counts of unknown etiology. Would recommend outpatient follow-up with hematology for further evaluation. White count is trending down and 17 today and patient is afebrile status post laparoscopic appendectomy. Patient reports to feeling well and denies any significant discomfort. Patient reports is passing gas with no bowel movement as of yet. Patient is voiding with no difficulties and denies any nausea or vomiting. Incentive spirometer at the bedside and encouraged to use at least 10 times every hour while awake along with getting up with frequent walking around the halls. 03/09/2024 Patient is seen and evaluated in follow-up today doing well post appendectomy. White count is trending down at 13.5 today recommend outpatient follow-up with hematology in the outpatient setting as patient reports has had random findings of elevated white count and he reports there is some form of family history. Patient has been up and walking the halls multiple times reports passing gas denies any significant pain. Abdomen is tender although improved. Patient is tolerating diet with no reported nausea or vomiting. Patient is medically stable once cleared by general surgery. Patient is hopeful for discharge today. Review of systems: Constitutional: No reports of fatigue, fever, or chills Cardiovascular: No reports of chest pain or palpitations Respiratory: No reports of shortness of breath or cough GI: No reports of nausea, vomiting, or diarrhea : No reports of dysuria or retention Neurovascular: No reports of weakness or numbness All medications have been reviewed PHYSICAL EXAMINATION: GENERAL: The patient is alert and oriented x3, not in any acute distress. Well developed, well nourished. obese HEENT: Pupils are round and equally reacting to light. EOMI. No scleral icterus. No conjunctival pallor. Normocephalic, atraumatic. No pharyngeal erythema. No thyromegaly. CARDIOVASCULAR: S1 and S2 present. No murmurs, rubs, or gallops. PULMONARY: Chest is clear to auscultation, no wheezing or crackles. ABDOMEN: Soft, minimally tender, nondistended, normoactive bowel sounds. No palpable organomegaly. MUSCULOSKELETAL: No joint swelling or deformity. EXTREMITIES: No cyanosis, clubbing, or pedal edema. NEUROLOGICAL: Gross neurological examination did not reveal any focal deficits. SKIN: No rashes. Assessment: Abdominal pain, status post laparoscopic appendectomy Leukocytosis secondary to above. Patient reports has had elevated white count previously and will have patient follow-up with hematology outpatient Continued ongoing nicotine dependence Obesity with a BMI 34.2 GI prophylaxis DVT prophylaxis Full code Plan: Patient is admitted under surgery services status post laparoscopic appendectomy, postop day 2 doing relatively well White count remains elevated although his trending down and currently 13. Patient is maintained on antibiotics and infectious diseases following Blood sugar was elevated and will obtain a hemoglobin A1c as patient reports no significant history Encouraged incentive spirometer use at least 10 times every hour while awake White count is trending down. Recommend outpatient follow-up with hematology as patient reports family history of abnormal white counts Encouraged increased activity as tolerated Patient is medically stable once cleared by general surgery Thank you kindly for this consultation, we will continue to follow with general surgery during hospitalization The impression and plan of care has been dictated by Citlaly Gifford, Nurse Practitioner as directed. Dr. Suzanne MD I have performed a history and examination and MDM of this patient, discussed the same with the dictator, and agree with the dictator's assessment and plan as written ,documented as a scribe. Based on total visit time, I have performed more than 50% of the visit. Objective - Vital Signs Vital signs: Vital Signs Temp 98.2 F 03/09/24 07:00 Pulse 67 03/09/24 07:00 Resp 16 03/09/24 07:00 BP 107/70 03/09/24 07:00 Pulse Ox 99 03/09/24 07:00 FiO2 Intake & Output 03/08/24 03/09/24 03/09/24 18:59 06:59 18:59 Intake Total 354 240 118 Balance 354 240 118 Intake: Oral 354 240 118 Other: # Voids 3 2 # Bowel Movements 2 - Labs CBC & Chem 7: 03/09/24 05:07 03/07/24 14:26 Labs: Abnormal Lab Results - Last 24 Hours (Table) 03/09/24 Range/Units 05:07 WBC 13.5 H (3.8-10.6) k/uL RBC 3.78 L (4.30-5.90) m/uL Hgb 12.1 L (13.0-17.5) gm/dL Hct 35.9 L (39.0-53.0) % Neutrophils # 8.9 H (1.3-7.7) k/uL
== END 2024-03-09 13:05 | disposition home or self-care (01) ==
LOC: EC 20:27 → 6NMEDSUR 21:01
PROVIDERS: ADMIT Surgery; ATTEND Surgery
DX: K35.32 Acute appendicitis with perforation, localized peritonitis, and gangrene, without abscess (principal); F17.210 Nicotine dependence, cigarettes, uncomplicated; E66.9 Obesity, unspecified; Z68.34 Body mass index [BMI] 34.0-34.9, adult; Z98.890 Other specified postprocedural states
CPT/HCPCS: 96376; 96372 ×2; 96375 ×2; 96374; 99285; 88304; 80053; 85025 ×3; 85610; 83036; 44970; G0378 ×4; J2543 ×4; J0330; J1200; J1644; J1100; J2765 ×2; J2405 ×2; J2001; J1650 ×2; J3010; J3490; J1170 ×3; J1885 ×3; J2704; J2470 ×3

== ENCOUNTER 2024-11-09 18:20 | Inpatient (IN) | payer BC ==
--- NOTE | 2024-11-09 19:11 | CT ---
EXAMINATION TYPE: CODE STROKE: CT brain wo contr DATE OF EXAM: 11/09/2024 COMPARISON: None CLINICAL INDICATION: Male, 34 years old with history of Neuro deficit, acute, stroke suspected; PHH, Patient reports light headed dizziness, numbness/tingling left arm and left leg, slowed speech. jovana nt sent by PCP to r/o stroke. TECHNIQUE: CT of the brain performed without contrast with sagittal and coronal reformats. CT DLP: mGycm CT CTDI: mGy Automated exposure control for dose reduction was used. FINDINGS: There is no acute intracranial hemorrhage, mass effect, or midline shift identified. The ventricles and sulci are within normal limits in size. The globes are intact and the visualized sinuses are natalee ar. IMPRESSION: No acute intracranial hemorrhage, mass effect, or midline shift is seen. [facility], , 11/09/2024 7:08 PM
[2024-11-09 19:12] LABS: ALT 32 U/L (4-49); AST 27 U/L (17-59); African American GFR (CKD) >90 (>60 ml/min/1.73 sqM); Albumin 4.9 g/dL (3.5-5.0); Alkaline Phosphatase 63 U/L (38-126); Anion Gap 12 mmol/L; Blood Urea Nitrogen 16 mg/dL (9-20); Calcium 9.7 mg/dL (8.4-10.2); Carbon Dioxide 23 mmol/L (22-30); Chloride 103 mmol/L (98-107); Creatine Kinase 114 U/L (55-170); Glucose 104 mg/dL (74-99); Non-African American GFR(CKD) >90 (>60 ml/min/1.73 sqM); Potassium 4.4 mmol/L (3.5-5.1); Sodium 138 mmol/L (137-145); Total Bilirubin 0.6 mg/dL (0.2-1.3); Total Protein 7.8 g/dL (6.3-8.2)
[2024-11-09 19:22] LABS: Basophils # (A) 0.1 k/uL (0-0.2); Basophils % (A) 1 %; Eosinophils # (A) 0.2 k/uL (0-0.7); Eosinophils % (A) 2 %; HCT 46.1 % (39.0-53.0); HGB 15.2 gm/dL (13.0-17.5); Lymphocytes # (A) 3.5 k/uL (1.0-4.8); Lymphocytes % (A) 35 %; MCH 29.6 pg (25.0-35.0); MCHC 32.9 g/dL (31.0-37.0); MCV 89.9 fL (80.0-100.0); Mean Platelet Volume 7.5; Monocytes # (A) 0.5 k/uL (0-1.0); Monocytes % (A) 5 %; Neutrophils # (A) 5.5 k/uL (1.3-7.7); Neutrophils % (A) 55 %; Platelet Count 333 k/uL (150-450); RBC 5.13 m/uL (4.30-5.90); RDW 13.3 % (11.5-15.5)
[2024-11-09 19:44] LABS: INR 0.9 (<1.2); Partial Thromboplastin Time 21.9 sec (22.0-30.0); Prothrombin Time 10.2 sec (10.0-12.5)
--- NOTE | 2024-11-09 20:42 | ED ---
General Adult HPI - General Chief complaint: Neuro Symptoms/Deficit Stated complaint: dizziness, L arm numbness Time Seen by Provider: 11/09/24 18:30 Source: patient Mode of arrival: ambulatory Limitations: no limitations - History of Present Illness Initial comments: 34-year-old male with no reported past medical history presents emergency dep artment with questionable strokelike symptoms. Patient states around noon today he started having numbness in his left arm and left leg. Family noted that he was slurring his speech. He did have an appointment with his primary care doctor at [facility] who sent him into the emergency department for strokelike symptoms. Patient admits some weakness in his left arm and left leg. NIH is 5. He denies history of stroke. Patient is not taking blood thinners. He has also felt very fatigued and states he started a new medication a few weeks ago. Patient takes Wellbutrin. He denies any fevers. No visual changes. Denies headache. No other alleviating, precipitating or modifying factors - Related Data Home Medications Medication Instructions Recorded Confirmed FLUoxetine HCL [PROzac] 10 mg PO DIRECTED 11/09/24 11/09/24 Fexofenadine HCl [Huong Allergy] 180 mg PO BID 11/09/24 11/09/24 Wilda 500 mg PO DAILY 11/09/24 11/09/24 Ginseng Complex 1 cap PO DAILY 11/09/24 11/09/24 Hydrocortisone Cream 1 applic TOPICAL BID PRN 11/09/24 11/09/24 [Hydrocortisone 2.5% Cream] Ketoconazole 2% Shampoo [Nizoral] 1 applic TOPICAL Q2D 11/09/24 11/09/24 Magnesium 500 mg PO BID 11/09/24 11/09/24 Multivit-Mins/Iron/Folic/Lycop 1 tab PO DAILY 11/09/24 11/09/24 [Centrum Men's Tablet] Triamcinolone 0.1% Cream [Kenalog 1 applicatio TOPICAL BID PRN 11/09/24 11/09/24 0.1% Cream] buPROPion XL [Wellbutrin XL] 150 mg PO DAILY 11/09/24 11/09/24 Allergies Allergy/AdvReac Type Severity Reaction Status Date / Time No Known Allergies Allergy Verified 11/09/24 19:47 Review of Systems ROS Statement: Those systems with pertinent positive or pertinent negative responses have been documented in the HPI. ROS Other: All systems not noted in ROS Statement are negative. Past Medical History Past Medical History: No Reported History History of Any Multi-Drug Resistant Organisms: None Reported Past Surgical History: Hernia Repair Additional Past Surgical History / Comment(s): hernia surgery in 2011 Past Anesthesia/Blood Transfusion Reactions: No Reported Reaction Past Psychological History: No Psychological Hx Reported Smoking Status: Vaper Past Alcohol Use History: None Reported Past Drug Use History: None Reported General Exam Limitations: no limitations General appearance: alert, in no apparent distress Head exam: Present: atraumatic, normocephalic, normal inspection Eye exam: Present: normal appearance, PERRL, EOMI. Absent: scleral icterus, conjunctival injection, periorbital swelling ENT exam: Present: normal exam, mucous membranes moist Neck exam: Present: normal inspection. Absent: tenderness, meningismus, lymphadenopathy Respiratory exam: Present: normal lung sounds bilaterally. Absent: respiratory distress, wheezes, rales, rhonchi, stridor Cardiovascular Exam: Present: regular rate, normal rhythm, normal heart sounds. Absent: systolic murmur, diastolic murmur, rubs, gallop, clicks GI/Abdominal exam: Present: soft, normal bowel sounds. Absent: distended, tenderness, guarding, rebound, rigid Neurological exam: Present: alert, oriented X3, other (Patient has decreased paving rammer strength on the left. He also has drift of the left leg on strength testing. Patient has slight difficulty with ataxia testing on the left arm and decrease sensation in the left arm and left leg.) Course Vital Signs 11/09/24 11/09/24 11/09/24 18:23 19:45 21:04 Temperature 98.1 F Pulse Rate 85 74 72 Respiratory 18 18 16 Rate Blood Pressure 154/91 126/84 124/80 O2 Sat by Pulse 98 98 98 Oximetry Medical Decision Making - Medical Decision Making Was pt. sent in by a medical professional or institution (, PA, VACUUM FURNACE OPERATOR, urgent care, hospital, or prison...) When possible be specific @ -Patient sent in by his primary care doctor for strokelike symptoms Did you speak to anyone other than the patient for history (EMS, parent, family, police, friend...)? What history was obtained from this source @ -Spoke with his mother and significant other for history Did you review nursing and triage notes (agree or disagree)? Why? @ -I reviewed and agree with nursing and triage notes Were old charts reviewed (outside hosp., previous admission, EMS record, old EKG, old radiological studies, urgent care reports/EKG's, prison records)? Report findings @ -No old charts were reviewed Differential Diagnosis (chest pain, altered mental status, abdominal pain women, abdominal pain men, vaginal bleeding, weakness, fever, dyspnea, syncope, headache, dizziness, GI bleed, back pain, seizure, CVA, palpatations, mental health, musculoskeletal)? @ -Differential CVA Ischemic stroke, hemorrhagic stroke, brain tumor, atypical migraine, Wernicke's encephalopathy, seizure, multiple sclerosis, meningitis, encephalitis, hypoglycemia, Guillain-Rothman, electrolytes disturbance, myasthenia gravis.... This is not meant to be an all-inclusive list EKG interpreted by me (3pts min.). @ -yes And demonstrates sinus rhythm with occasional PVCs. Rate of 79. Parable 149. QRS 91. QTc of 405. No acute ST segment elevations or depressions X-rays interpreted by me (1pt min.). @ -Yes and demonstrates no acute process CT interpreted by me (1pt min.). @ -Yes and demonstrates no acute process U/S interpreted by me (1pt. min.). @ -None done What testing was considered but not performed or refused? (CT, X-rays, U/S, labs)? Why? @ -None What meds were considered but not given or refused? Why? @ -None Did you discuss the management of the patient with other professionals (professionals i.e. , PA, VACUUM FURNACE OPERATOR, lab, RT, psych nurse, adoption social worker, wood barker, teacher, chief lifestyle officer, director case management)? Give summary @ -Spoke with Dr. Chung for the admission Was smoking cessation discussed for >3mins.? @ -No Was critical care preformed (if so, how long)? @ -Yes, 30 minutes for code stroke activation Were there social determinants of health that impacted care today? How? (Homelessness, low income, unemployed, alcoholism, drug addiction, transportation, low edu. Level, literacy, decrease access to med. care, retirement, rehab)? @ -No Was there de-escalation of care discussed even if they declined (Discuss DNR or withdrawal of care, Hospice)? DNR status @ -No What co-morbidities impacted this encounter? (DM, HTN, Smoking, COPD, CAD, Cancer, CVA, ARF, Chemo, Hep., AIDS, mental health diagnosis, sleep apnea, morbid obesity)? @ -None Was patient admitted / discharged? Hospital course, mention meds given and route, prescriptions, significant lab abnormalities, going to OR and other pertinent info. @ -Upon arrival patient placed into room 3. Thorough history and physical exam was performed. NIH is assessed and is 5. He reports his last known well was at noon. Laboratory studies are conducted. CT and CTA are performed. Results are discussed with the patient and his family. Patient's NIH is unchanged. Recommended admission for neurologic patient. Patient was agreeable to this. Spoke with Dr. Chung for the admission Undiagnosed new problem with uncertain prognosis? @ -No Drug Therapy requiring intensive monitoring for toxicity (Heparin, Nitro, Insulin, Cardizem)? @ -No Were any procedures done? @ -No Diagnosis/symptom? @ -Acute left-sided weakness, evaluation for CVA Acute, or Chronic, or Acute on Chronic? @ -Acute Uncomplicated (without systemic symptoms) or Complicated (systemic symptoms)? @ -Complicated Side effects of treatment? @ -No Exacerbation, Progression, or Severe Exacerbation? @ -No Poses a threat to life or bodily function? How? (Chest pain, USA, IA, pneumonia, PE, COPD, DKA, ARF, appy, cholecystitis, CVA, Diverticulitis, Homicidal, Suicida l, threat to staff... and all critical care pts) @ -Yes as patient is sent in for rule out stroke - Lab Data Result diagrams: 11/09/24 18:51 11/09/24 18:51 Lab Results 11/09/24 11/09/24 11/09/24 Range/Units 18:51 18:51 18:51 WBC 10.0 (3.8-10.6) k/uL RBC 5.13 (4.30-5.90) m/uL Hgb 15.2 (13.0-17.5) gm/dL Hct 46.1 (39.0-53.0) % MCV 89.9 (80.0-100.0) fL MCH 29.6 (25.0-35.0) pg MCHC 32.9 (31.0-37.0) g/dL RDW 13.3 (11.5-15.5) % Plt Count 333 (150-450) k/uL MPV 7.5 Neutrophils % 55 % Lymphocytes % 35 % Monocytes % 5 % Eosinophils % 2 % Basophils % 1 % Neutrophils # 5.5 (1.3-7.7) k/uL Lymphocytes # 3.5 (1.0-4.8) k/uL Monocytes # 0.5 (0-1.0) k/uL Eosinophils # 0.2 (0-0.7) k/uL Basophils # 0.1 (0-0.2) k/uL PT 10.2 (10.0-12.5) sec INR 0.9 (<1.2) APTT 21.9 L (22.0-30.0) sec Sodium 138 (137-145) mmol/L Potassium 4.4 (3.5-5.1) mmol/L Chloride 103 (98-107) mmol/L Carbon Dioxide 23 (22-30) mmol/L Anion Gap 12 mmol/L BUN 16 (9-20) mg/dL Creatinine 0.86 (0.66-1.25) mg/dL Est GFR (CKD-EPI)AfAm >90 (>60 ml/min/1.73 sqM) Est GFR (CKD-EPI)NonAf >90 (>60 ml/min/1.73 sqM) Glucose 104 H (74-99) mg/dL Calcium 9.7 (8.4-10.2) mg/dL Total Bilirubin 0.6 (0.2-1.3) mg/dL AST 27 (17-59) U/L ALT 32 (4-49) U/L Alkaline Phosphatase 63 (38-126) U/L Creatine Kinase 114 (55-170) U/L Troponin I (0.000-0.034) ng/mL Total Protein 7.8 (6.3-8.2) g/dL Albumin 4.9 (3.5-5.0) g/dL 11/09/24 Range/Units 18:51 WBC (3.8-10.6) k/uL RBC (4.30-5.90) m/uL Hgb (13.0-17.5) gm/dL Hct (39.0-53.0) % MCV (80.0-100.0) fL MCH (25.0-35.0) pg MCHC (31.0-37.0) g/dL RDW (11.5-15.5) % Plt Count (150-450) k/uL MPV Neutrophils % % Lymphocytes % % Monocytes % % Eosinophils % % Basophils % % Neutrophils # (1.3-7.7) k/uL Lymphocytes # (1.0-4.8) k/uL Monocytes # (0-1.0) k/uL Eosinophils # (0-0.7) k/uL Basophils # (0-0.2) k/uL PT (10.0-12.5) sec INR (<1.2) APTT (22.0-30.0) sec Sodium (137-145) mmol/L Potassium (3.5-5.1) mmol/L Chloride (98-107) mmol/L Carbon Dioxide (22-30) mmol/L Anion Gap mmol/L BUN (9-20) mg/dL Creatinine (0.66-1.25) mg/dL Est GFR (CKD-EPI)AfAm (>60 ml/min/1.73 sqM) Est GFR (CKD-EPI)NonAf (>60 ml/min/1.73 sqM) Glucose (74-99) mg/dL Calcium (8.4-10.2) mg/dL Total Bilirubin (0.2-1.3) mg/dL AST (17-59) U/L ALT (4-49) U/L Alkaline Phosphatase (38-126) U/L Creatine Kinase (55-170) U/L Troponin I 0.025 (0.000-0.034) ng/mL Total Protein (6.3-8.2) g/dL Albumin (3.5-5.0) g/dL Disposition Clinical Impression: Left sided numbness, Dysarthria Disposition: ADMITTED IP TO THIS [facility] Condition: Stable Is patient prescribed a controlled substance at d/c from ED?: No Time of Disposition: 22:29 Decision to Admit Reason: Admit from EC Decision Date: 11/09/24 Decision Time: 22:29
--- NOTE | 2024-11-09 21:04 | XR ---
EXAMINATION TYPE: XR chest 2V DATE OF EXAM: 11/09/2024 9:00 PM COMPARISON: None. CLINICAL INDICATION: Male, 34 years old with history of altered mental status, TECHNIQUE: Single frontal view of the chest is obtained. FINDINGS: There is no focal air space opacity, pleural effusion, or pneumothorax seen. The cardiac silhouette size is within normal limits. The osseous structures are intact. IMPRESSION: No acute process. [facility], , 11/09/2024 9:02 PM
--- NOTE | 2024-11-09 21:19 | CT ---
EXAMINATION TYPE: CT angio head neck DATE OF EXAM: 11/09/2024 9:08 PM COMPARISON: None. CLINICAL INDICATION: Male, 34 years old with history of Neuro deficit, acute, stroke suspected, Patie nt reports light headed dizziness, numbness/tingling left arm and left leg, slowed speech. patient se nt by PCP to r/o stroke., TECHNIQUE: Axially acquired helical CT Angiogram of the Neck was obtained with and without contrast. Axial images are supplemented with coronal and sagittal MIP reconstructions. 3D reconstructions were also performed and were post-processed at an independent workstation. Estimated carotid stenosis was calculated using the NASCET criteria. Contrast CTA of the k[place] of [place] was performed 3-D recons truction imaging obtained at a separate workstation. IV CONTRAST: with IV Contrast, patient injected with 100ml mL of Isovue 370. (None if empty) CT DLP: mGycm, Automated exposure control for dose reduction was used. FINDINGS: NECK: Right carotid system: Mild plaque is seen of the right common carotid artery. There is mild plaque a lso noted at the carotid bulb and proximal ICA. No significant diameter reduction. ECA is patent. Right vertebral artery appears unremarkable. Left carotid system: Mild plaque is seen of the left common carotid artery. There is mild plaque als o noted at the carotid bulb and proximal ICA. No significant diameter reduction. ECA is patent. Lef t vertebral artery appears unremarkable. BRAIN: Vertebrobasilar system as well as intracranial portions of the internal carotid arteries and their ma justice tributaries are patent. I do not see evidence for sizable aneurysm or vascular malformation. Pl ease note MRI provides greater sensitivity and specificity. Visualized brain appears grossly unremar kable. IMPRESSION: 1. No evidence for hemodynamically significant stenosis at the carotid bifurcations. No significant diameter reduction to account for the patient's symptoms. 2. No evidence for intracranial aneurysm or high-grade stenosis. [facility], , 11/09/2024 9:17 PM
[2024-11-09] MEDS: diazePAM 5 MG TAB PO STA (22:30)
[2024-11-10] MEDS: ASPIRIN 325 MG TAB PO STA (00:03)
[2024-11-10] MEDS: ATORVASTATIN 40 MG TAB PO SCH (00:03)
--- NOTE | 2024-11-10 00:40 | P.HPIM ---
History of Present Illness H&P Date: 11/09/24 Patient is a 34-year-old male with no significant medical history presenting to the ED with left-sided weakness and slurred speech. Patient states around noon today he noticed weakness in his left his upper and lower extremities. Patient states that he felt tingling sensation in both left upper and left lower extremities. Patient noted tightness in the back of his neck for symptoms started. His family noticed he had slurred speech as well. He had schedule appointment with PCP today at around 4 PM who told him to go to the emergency department due to the stroke-like symptoms. He is a former [id number] smoker that quit 4 months ago. Denies any alcohol and drug use. NIHSS was 5 on admission in the ED. Patient denies headache, vision changes, fever, chest pain, heart palpitations, shortness of breath, abdominal pain, nausea, vomiting. Denies any history of stroke, seizures, migraines. EKG independently interpreted displaying sinus rhythm with occasional ventricular premature complexes, rate 79 bpm, QTc 405 ms CXR independently interpreted displaying no acute cardiopulmonary process Brain CT displaying no acute intracranial hemorrhage, mass effect, or midline shift seen CT angio head and neck displaying no evidence for intracranial aneurysm or high- grade stenosis 98.1 F, MN 85, RR 18, BP 154/91, O2 sat 98% on room air Review of systems: Pertinent positives and negatives as discussed in HPI, a complete review of systems was performed and all other systems are negative. Physical examination: Vital signs reviewed General: non toxic, no distress, appears at stated age, obese Derm: no unusual rashes/lesions, warm Head: atraumatic, normocephalic, symmetric Eyes: EOMI, anicteric sclera, pupils equal round reactive to light ENT: Nose and ears atraumatic Mouth: no lip lesion, mucus membranes moist Cardiovascular: S1S2 reg, no murmur, positive dorsalis pedis pulse bilateral, no edema Lungs: CTA bilateral, no rhonchi, no rales, no accessory muscle use Abdominal: soft, non-tender to palpation, no guarding Ext: muscle strength 4/5 strength in LE and LL extremities Neuro: CN II-XI grossly intact, left-sided drift in upper and lower extremities, mild slurred speech Psych: Alert, oriented to person, place, and time Assessment/Plan: Patient is a 34-year-old male with no significant medical history presenting to the ED with left-sided weakness and slurred speech. ED documentation reviewed. Discussed with patient. The patient is admitted with an anticipated [] than 2 midnight stay for evaluation of left-sided weakness and slurred speech. Active: #. Strokelike symptoms in the setting of slurred speech and left-sided upper and lower extremity weakness CVA/TIA versus MS versus MG versus Seizure NIHSS 45left arm and left leg drift noted along with slurred speech and decreased sensation Brain CT displaying no acute intracranial hemorrhage, mass effect, or midline shift seen CT angio head and neck displaying no evidence for intracranial aneurysm or high- grade stenosis Troponin 0.025 Hide hypoglycemia unlikely due to glucose 105 TSH within normal limit at 2.050 Aspirin 81 mg Atorvastatin 40 mg p.o. daily MRI brain ordered Echocardiogram ordered Lipid panel ordered Neurochecks Fall precaution classroom monitor Consult speech Consult PT/OT Consult neurology Chronic: #. Depression/anxiety: Continue Wellbutrin 150 mg p.o. daily DVT prophylaxis: lovenox 40 mg daily sc CODE STATUS: Full code Anticipated discharge place: Pending clinical course Osmar Gill MD PGY-1 IM Dictation was produced using [employer] dictation software. please excuse any gramma tical, word or spelling errors. I have seen and evaluated the patient today. I Discussed the case with the resident and agree with the resident's findings I edited the assessment and plan as necessary as documented in the resident's note. Past Medical History Past Medical History: No Reported History History of Any Multi-Drug Resistant Organisms: None Reported Past Surgical History: Hernia Repair Additional Past Surgical History / Comment(s): hernia surgery in 2011 Past Anesthesia/Blood Transfusion Reactions: No Reported Reaction Past Psychological History: No Psychological Hx Reported Smoking Status: Vaper Past Alcohol Use History: None Reported Past Drug Use History: None Reported Medications and Allergies Home Medications Medication Instructions Recorded Confirmed Type FLUoxetine HCL [PROzac] 10 mg PO DIRECTED 11/09/24 11/09/24 History Fexofenadine HCl [Huong Allergy] 180 mg PO BID 11/09/24 11/09/24 History Wilda 500 mg PO DAILY 11/09/24 11/09/24 History Ginseng Complex 1 cap PO DAILY 11/09/24 11/09/24 History Hydrocortisone Cream 1 applic TOPICAL BID PRN 11/09/24 11/09/24 History [Hydrocortisone 2.5% Cream] Ketoconazole 2% Shampoo [Nizoral] 1 applic TOPICAL Q2D 11/09/24 11/09/24 History Magnesium 500 mg PO BID 11/09/24 11/09/24 History Multivit-Mins/Iron/Folic/Lycop 1 tab PO DAILY 11/09/24 11/09/24 History [Centrum Men's Tablet] Triamcinolone 0.1% Cream [Kenalog 1 applicatio TOPICAL BID PRN 11/09/24 11/09/24 History 0.1% Cream] buPROPion XL [Wellbutrin XL] 150 mg PO DAILY 11/09/24 11/09/24 History Allergies Allergy/AdvReac Type Severity Reaction Status Date / Time No Known Allergies Allergy Verified 11/09/24 19:47 Physical Exam Vitals: Vital Signs Temp Pulse Resp BP Pulse Ox 11/09/24 21:04 72 16 124/80 98 11/09/24 19:45 74 18 126/84 98 11/09/24 18:23 98.1 F 85 18 154/91 98 Intake and Output 11/09/24 11/09/24 11/09/24 06:59 14:59 22:59 Other: Weight 108.862 kg Results CBC & Chem 7: 11/09/24 18:51 11/09/24 18:51 Labs: Abnormal Lab Results - Last 24 Hours (Table) 11/09/24 11/09/24 Range/Units 18:51 18:51 APTT 21.9 L (22.0-30.0) sec Glucose 104 H (74-99) mg/dL
[2024-11-10] MEDS: SODIUM CHLORIDE 0.9% 1,000 ML IV SCH (03:15)
[2024-11-10 07:24] LABS: Basophils # (A) 0.1 k/uL (0-0.2); Basophils % (A) 1 %; Eosinophils # (A) 0.3 k/uL (0-0.7); Eosinophils % (A) 4 %; HGB 14.8 gm/dL (13.0-17.5); Lymphocytes % (A) 37 %; MCH 29.5 pg (25.0-35.0); MCHC 32.9 g/dL (31.0-37.0); MCV 89.7 fL (80.0-100.0); Monocytes # (A) 0.6 k/uL (0-1.0); Monocytes % (A) 8 %; Neutrophils # (A) 3.9 k/uL (1.3-7.7); Neutrophils % (A) 48 %; Platelet Count 292 k/uL (150-450); RBC 5.01 m/uL (4.30-5.90)
[2024-11-10 07:42] LABS: ALT 29 U/L (4-49); AST 24 U/L (17-59); African American GFR (CKD) >90 (>60 ml/min/1.73 sqM); Albumin 4.3 g/dL (3.5-5.0); Alkaline Phosphatase 49 U/L (38-126); Anion Gap 9 mmol/L; Blood Urea Nitrogen 15 mg/dL (9-20); Calcium 9.4 mg/dL (8.4-10.2); Carbon Dioxide 26 mmol/L (22-30); Chloride 103 mmol/L (98-107); Glucose 103 mg/dL (74-99); Magnesium 2.3 mg/dL (1.6-2.3); Non-African American GFR(CKD) >90 (>60 ml/min/1.73 sqM); Potassium 4.7 mmol/L (3.5-5.1); Sodium 138 mmol/L (137-145); Total Bilirubin 0.5 mg/dL (0.2-1.3); Total Protein 6.8 g/dL (6.3-8.2)
[2024-11-10] MEDS: ASPIRIN 81 MG PO SCH (09:30)
[2024-11-10] MEDS: ENOXAPARIN 40 MG/0.4 ML SYRINGE SQ SCH (09:30)
[2024-11-10] MEDS: LORATADINE 10 MG TAB PO SCH (09:30)
[2024-11-10] MEDS: buPROPion XL 150 MG TAB.ER.24H PO SCH (09:30)
[2024-11-10 10:23] LABS: Chol/HDL Ratio 4.08 Ratio; LDL Cholesterol,Calculated 124.6 mg/dL (0.0-131.0); VLDL Calculation 16.64 mg/dL (5.00-40.00)
--- NOTE | 2024-11-10 15:18 | CA ---
Transthoracic Echo Report Name: Vicne Cook Age: 34 Gender: M : 1990 Exam Date: 11/10/2024 08:54 Exam Location: [place] [facility] Ht (in): 71 Wt (lb): 240 Ordering Physician: Osmar Gill MD Attending/Referring Phys: Air Vice Marshal Carla Gtz RDCS Procedure CPT: Indications: Slurred speech, CVA Cardiac Hx: Technical Quality: Fair Contrast 1: Total Dose (mL): Contrast 2: Total Dose (mL): MEASUREMENTS (Male / Female) Normal Values 2D ECHO LV Diastolic Diameter PLAX 4.8 cm 4.2 - 5.9 / 3.9 - 5.3 cm LV Systolic Diameter PLAX 3.2 cm IVS Diastolic Thickness 1.1 cm 0.6 - 1.0 / 0.6 - 0.9 cm LVPW Diastolic Thickness 1.1 cm 0.6 - 1.0 / 0.6 - 0.9 cm LV Relative Wall Thickness 0.5 RV Internal Dim ED PLAX 4.8 cm LVOT Diameter 2.3 cm LV Diastolic Volume MOD BP 189.7 cm??? 67 - 155 / 56 - 104 cm??? LV Systolic Volume MOD BP 86.2 cm??? 22 - 58 / 19 - 49 cm??? LV Ejection Fraction MOD BP 54.6 % >= 55 % LV Cardiac Index MOD BP 2751.7 cm???/min???m??? LV Diastolic Volume MOD 4C 178.2 cm??? LV Systolic Volume MOD 4C 88.4 cm??? LV Ejection Fraction MOD 4C 50.4 % LV Cardiac Index MOD 4C 2387.7 cm???/min???m??? LV Diastolic Length 4C 9.4 cm LV Systolic Length 4C 7.9 cm LV Diastolic Volume MOD 2C 185.7 cm??? LV Systolic Volume MOD 2C 77.6 cm??? LV Ejection Fraction MOD 2C 58.2 % LV Cardiac Index MOD 2C 2874.0 cm???/min???m??? LV Diastolic Length 2C 10.3 cm LV Systolic Length 2C 8.8 cm LA Volume 53.6 cm??? 18 - 58 / 22 - 52 cm??? LA Volume Index 22.6 cm???/m??? 16 - 28 cm???/m??? M-MODE Aortic Root Diameter MM 3.1 cm LA Systolic Diameter MM 4.5 cm LA Ao Ratio MM 1.4 AV Cusp Separation MM 2.1 cm DOPPLER AV Peak Velocity 119.4 cm/s AV Peak Gradient 5.7 mmHg AV Mean Velocity 80.4 cm/s AV Mean Gradient 2.9 mmHg AV Velocity Time Integral 24.5 cm LVOT Peak Velocity 107.5 cm/s LVOT Peak Gradient 4.6 mmHg LVOT Velocity Time Integral 22.2 cm LVOT Stroke Volume 92.2 cm??? LVOT Stroke Volume Index 40.4 ml/m??? LVOT Cardiac Index 2450.4 cm???/min???m??? AV Area Cont Eq vti 3.8 cm??? AV Area Cont Eq pk 3.7 cm??? MV Area PHT 3.4 cm??? Mitral E Point Velocity 97.7 cm/s Mitral A Point Velocity 58.9 cm/s Mitral E to A Ratio 1.7 MV Deceleration Time 224.4 ms MV E' Velocity 8.9 cm/s Mitral E to MV E' Ratio 11.0 FINDINGS Left Ventricle Left ventricular cavity size normal. Borderline left ventricular hypertrophy. No obvious regional wall motion abnormalities. Left ventricular ejection fraction is estimated at 50-55 %. Normal left ventricular diastolic filling pattern. Right Ventricle Mild right ventricular dilatation. Right ventricular systolic pressure within normal limits. Right Atrium Mild right atrial dilatation. Positive agitated saline bubble study for right to left shunt with valsalva. Left Atrium Normal left atrial size. Mitral Valve Structurally normal mitral valve. Mild mitral regurgitation. Aortic Valve Trileaflet aortic valve. No aortic stenosis. Trace aortic regurgitation. Tricuspid Valve Structurally normal tricuspid valve. Mild tricuspid regurgitation. Pulmonic Valve Structurally normal pulmonic valve. Trace pulmonic regurgitation. Pericardium No pericardial effusion. Aorta Normal size aortic root and proximal ascending aorta. CONCLUSIONS Normal LV size, preserved systolic function ejection fraction is in the 55% range. Mild mitral tricuspid and trivial aortic insufficiency. No significant pulmonary hypertension. Bubble study suggests a shunt probable PFO. There is a right to left shunt noted especially with Valsalva Previewed by: Dr. Peng Jiang MD (Electronically Signed) Final Date: 10 November 2024 15:17
--- NOTE | 2024-11-10 15:39 | MR ---
INDICATION: Patient age:Male; 34 years old; Reason for study: Neuro deficit, acute, stroke suspected; PHH. COMPARISON: CT brain 11/09/2024, CTA head and neck 11/09/2024. TECHNIQUE: Multi planar, multi sequence imaging was performed through the brain without the administr ation of intravenous contrast. FINDINGS: Motion degraded exam. The beal-white junctions, ventricular system, basal cisterns appear unremarkable. Diffusion-weighted imaging shows no evidence of restricted diffusion to suggest acute/subacute infarct. Intracranial art erial flow voids are maintained. Midline structures show no abnormality. T2/FLAIR hyperintense foci w ithin the danny and within the supratentorial ventricular white matter with perpendicular orientation to the ventricles. Additional few white matter foci within the right temporal, bilateral frontal, and left parietal subcortical white matter. Examples include a right frontal lobe periventricular white matter lesion measuring up to 1.6 cm (series 601, image 22). These lesions are T1 hypointense. Grossl y 20 lesions identified. The susceptibility weighted images do not reveal any evidence for micro-hemo rrhage. The bone marrow signal is within normal limits. The globes are unremarkable. Mild mucosal thickenin g of the ethmoid sinuses. Right mastoid effusion. IMPRESSION: 1. No evidence of intracranial mass or acute/subacute infarct. 2. Scattered white matter lesions most prominently within the periventricular white matter with addit ional subcortical white matter and danny lesions. The periventricular white matter lesions demonstrate a Alvarez finger appearance highly suggestive of demyelination including multiple sclerosis versus ot her etiologies. Further workup is recommended. 3. Right mastoid effusion. [facility], , 11/10/2024 3:36 PM
--- NOTE | 2024-11-10 16:04 | P.CNNES ---
History of Present Illness Consult date: 11/10/24 Requesting physician: Minerva Lassiter Reason for Consult: acute left sided numbness, dysarthria, r/o cva History of Present Illness: Patient is a 34-year-old right-handed male came to the hospital yesterday at 6: 20 PM with new onset left arm and leg weakness and tingling. Patient states that he has been having some numbness and tingling, off and on involving the left upper and lower extremities, since yesterday at noon. It feels like "static". He is also noted some cramping pain in the left upper arm and tingling in the leg. He feels head ivory as if his body is floating. This mainly happens when he is standing, but if he moves his head quickly also happens. He also noticed some speech slurring "coming and going", sometimes hard to pronounce syllables. Sometimes he is speaking slow, stumbles. He feels more tired. Patient states the numbness and tingling in the left side is coming and going, sometimes involves the entire left arm and left leg and sometimes only involves knee down or elbow down in the left-sided extremities. Symptoms are occurring every 1-2 hours lasting for few minutes to half an hour. Does not involve the face. However his left side of the face feels hot. Also notices some weakness of the left side. He still can walk. Vital signs on arrival blood pressure 154/91, which came down to 126/84. Pulse 85 temperature 98.1. Blood test shows normal CBC, PT PTT, CMP. TSH is normal. CK normal troponin negative. CT head showed no acute intracranial hemorrhage, mass effect or midline shift. I personally reviewed CT head, agree with the findings. Chest x-ray showed no acute process. EKG with sinus rhythm with occasional ventricular premature complexes. Patient states he smoked 1 to 2 pack/day for 10 to 14 years, stopped smoking and started vaping in July 2024. Denies any alcohol use. He did some drugs when he was young, has not done anything for last 10+ years. Patient denies any history of strokes or TIA. Denies any hypertension or diabetes. He does have some depression. Home medications include Wellbutrin XL 150 mg daily, [place], Prozac, Huong. Patient does not take any antiplatelet medication at home. Patient lives with his friend and 3 kids. Review of Systems All pertinent positive and negative review of systems mentioned in the HPI. Otherwise unremarkable. Past Medical History Past Medical History: No Reported History History of Any Multi-Drug Resistant Organisms: None Reported Past Surgical History: Hernia Repair Additional Past Surgical History / Comment(s): hernia surgery in 2011 Past Anesthesia/Blood Transfusion Reactions: No Reported Reaction Past Psychological History: No Psychological Hx Reported Smoking Status: Vaper Past Alcohol Use History: None Reported Past Drug Use History: None Reported Medications and Allergies Home Medications Medication Instructions Recorded Confirmed Type FLUoxetine HCL [PROzac] 10 mg PO DIRECTED 11/09/24 11/09/24 History Fexofenadine HCl [Huong Allergy] 180 mg PO BID 11/09/24 11/09/24 History Wilda 500 mg PO DAILY 11/09/24 11/09/24 History Ginseng Complex 1 cap PO DAILY 11/09/24 11/09/24 History Hydrocortisone Cream 1 applic TOPICAL BID PRN 11/09/24 11/09/24 History [Hydrocortisone 2.5% Cream] Ketoconazole 2% Shampoo [Nizoral] 1 applic TOPICAL Q2D 11/09/24 11/09/24 History Magnesium 500 mg PO BID 11/09/24 11/09/24 History Multivit-Mins/Iron/Folic/Lycop 1 tab PO DAILY 11/09/24 11/09/24 History [Centrum Men's Tablet] Triamcinolone 0.1% Cream [Kenalog 1 applicatio TOPICAL BID PRN 11/09/24 11/09/24 History 0.1% Cream] buPROPion XL [Wellbutrin XL] 150 mg PO DAILY 11/09/24 11/09/24 History Allergies Allergy/AdvReac Type Severity Reaction Status Date / Time No Known Allergies Allergy Verified 11/09/24 19:47 Physical Examination - Vital Signs Vital Signs: Vital Signs Temp Pulse Resp BP Pulse Ox 11/10/24 10:00 109 H 13 120/79 99 11/10/24 09:00 97.6 F 61 13 120/82 98 11/10/24 08:00 79 14 109/65 97 11/10/24 07:00 57 L 14 123/72 97 11/10/24 05:00 75 18 126/70 95 11/10/24 02:54 97 18 109/76 96 11/10/24 01:00 59 L 16 103/76 97 11/09/24 23:05 96 18 126/72 95 11/09/24 21:04 72 16 124/80 98 11/09/24 19:45 74 18 126/84 98 11/09/24 18:23 98.1 F 85 18 154/91 98 Intake and Output 11/09/24 11/10/24 11/10/24 22:59 06:59 14:59 Other: Weight 108.862 kg Patient is a young male, in no acute distress. Patient is alert awake oriented to time place and person. Speech and language functions are normal. Patient can name and repeat very well. No aphasia or dysarthria. Attention, concentration and fund of knowledge is adequate. On cranial nerve examination, pupils are equal, round and reacting to light, visual rodas are full on confrontation, with no neglect on double simultaneous stimulation. Extraocular muscles are intact with no nystagmus. Face is symmetric, tongue protrudes to the midline. Palatal elevation and sensation normal, hearing and shoulder shrug normal, facial sensation normal. On muscle strength testing, there is no pronator drift. The strength is slightly decreased in the left side with triceps 5-, biceps 5-, auto mechanic supervisor 5-, deltoid 5 but he tilts to the left. Strength is normal in the lower limbs. Deep tendon reflexes are symmetric 1 at the biceps, 1 brachioradialis, 2+ at the knees, 2+ ankles and plantars are possibly upgoing bilaterally. Sensory to touch is equal with no neglect on double simultaneous stimulation. Cerebellar function showed no ataxia for nlovgs-fj-jufd testing. No dysdiadochokinesia. No ataxia for koxg-mo-iybc testing on either side. Tone and bulk of muscles normal. Gait deferred.. On general examination, there is no carotid bruit or murmur, S1-S2 audible. Chest is clear on consultation. Abdomen is soft nontender. No organomegaly, bowel sounds present. Peripheral pulses are present. No peripheral edema. Results - Laboratory Findings CBC and BMP: 11/11/24 05:41 11/11/24 05:41 Abnormal Lab Findings: Abnormal Labs 11/09/24 11/09/24 11/10/24 18:51 18:51 06:42 APTT 21.9 L Glucose 104 H 103 H Assessment and Plan Assessment: * Intermittent numbness and tingling of the left side of the body, with some weakness. Rule out CVA. Rule out AUTOMOTIVE ELECTRICAL HELPER demyelination. * Ex tobacco use * Currently vapes Plan: Await MRI of the brain without contrast, evaluate for acute CVA 2-D echo revealed normal LV size, preserved systolic function with EF 55%. Borderline LVH. No obvious regional wall motion abnormalities. Normal left atrial size. Positive agitated saline bubble study for gqplc-[id number] shunt with Valsalva. CTA head and neck showed: No evidence for hemodynamically significant stenosis at the carotid bifurcation. No significant diameter reduction to account for the patient's symptoms. No evidence for intracranial aneurysm or high-grade stenosis. Fasting a.m. lipid panel cholesterol 187, LDL 124, HDL 45, triglycerides 83. Hemoglobin A1c Permissive hypertension for next 24-48 hours Patient has received aspirin 325 mg in the ER. Continue aspirin 81 mg daily. Neuro checks as per protocol. Telemetry monitoring rule out any arrhythmia PT, OT, speech therapy DVT prophylaxis: Lovenox 40 mg subcu daily Neurology will continue to follow. Thank you for the consult. Addendum: MRI of the brain without contrast revealed no evidence of intracranial mass or acute/subacute infarct. Scattered white matter lesions, most prominently within the periventricular white matter with additional subcortical white matter and danny lesions. The periventricular white matter lesions demonstrate an Alvarez finger appearance, highly suggestive of demyelination including multiple sclerosis versus other etiologies. Further workup is recommended. Right mastoid effusion. I personally reviewed MRI, agree with the findings. We will check MRI of the brain with contrast to evaluate for active lesions. Start Solu-Medrol 1 g IVPB daily for 3 to 5 days. Check B12, folate, TRICIA, vitamin D, Lyme, ANA. Consider lumbar puncture to look for oligoclonal bands. Cardiology consultation for PFO noted on 2D echo. Addendum: MRI of the brain with contrast revealed redemonstration of subcortical and periventricular white matter FLAIR hyperintense signal lesions. There is open drink incomplete enhancement involving the left parietal periventricular white matter lesion, most consistent with active demyelination. I presently reviewed MRI, agree with the findings. This active lesion is probably asymptomatic, as the symptoms are on the ipsilateral side. Overall, clinical picture is highly suggestive of multiple sclerosis. ADEM less likely, as the active lesion is only one at this time. I discussed results of MRI with the patient and his mother in detail. I spent at least another 25 minutes in counseling. After prolonged discussion, patient wants to hold off on lumbar puncture. He agreed to undergo MRI of the cervical and lumbar spine. Time with Patient: Greater than 30
--- NOTE | 2024-11-10 17:27 | MR ---
INDICATION: Patient age:Male; 34 years old; Reason for study: Demyelination, ?active lesions; PHH. COMPARISON: MRI brain 11/10/2024, CT head and neck 11/10/2024, CT brain 11/09/2024. TECHNIQUE: Multi planar, multi sequence imaging was performed through the brain after the uneventful administration of 11 mL of Gadobutrol contrast intravenously. FINDINGS: Please refer to MRI brain from another today for findings. Redemonstration of perpendicular oriented periventricular white matter FLAIR hyperintensity lesions. Additional FLAIR hyperintense lesions iden tified within the right temporal, bilateral frontal, left parietal subcortical white matter. Open rin g incomplete enhancement involving a left parietal periventricular white matter lesion (series 302, i mage 24 and series 301, image 56). None of the other lesions demonstrate definitive enhancement. Norm al enhancement of the vasculature. IMPRESSION: Redemonstration of subcortical and periventricular white matter FLAIR hyperintense signal lesions. Th ere is open ring incomplete enhancement involving a left parietal periventricular white matter lesion most consistent with active demyelination. [facility], , 11/10/2024 5:24 PM
[2024-11-10] MEDS: methylPREDNISolone SOD SUCCIN 1,000 MG in SODIUM CHLORIDE 0.9% 250 ML IVPB SCH (17:32)
--- NOTE | 2024-11-10 17:58 | P.PN ---
Subjective Progress Note Date: 11/10/24 Hospital course: Patient is a pleasant 34-year-old male with a past medical history of anxiety with depression, hernia repair in 2011 and nicotine use via vaping. He presented to the emergency department on 11/09/2024 as instructed by his PCP secondary to tingling in bilateral lower extremities and weakness in left upper and lower extremity. His family also reporting slurred speech. On arrival to our facility, patient underwent evaluation in the emergency department. Initial NIHSS score was 5. Vital signs upon arrival show blood pressure 154/91, heart r ate 85, respiratory rate 18, temp 98.1 F, and SpO2 of 90% on room air. EKG was completed showing normal sinus rhythm with occasional PVC. No noted T wave or ST abnormality showing no signs of acute ischemia upon personal review and interpretation. CT head completed negative for acute intracranial hemorrhage. Chest x-ray negative for acute cardiopulmonary process. CTA head and neck completed negative for acute intracranial process showing no evidence of hemodynamically significant stenosis at carotid bifurcations. Patient admitted under our services with consultation to neurology. Echocardiogram completed showing a normal preserved EF of 50 to 55% with mild mitral, tricuspid, and triv ial aortic insufficiency, no significant pulmonary hypertension and bubble study suggesting a possible PFO with [id number] shunt. Cardiology consulted for PFO and evaluation for SOHAIL. MRI completed showing scattered white matter lesions most prominently within the periventricular white matter with additional subcortical white matter and danny lesions, periventricular white matter lesions demonstrate a Alvarez finger appearance highly suggestive of demyelination concerning for multiple sclerosis and a right mastoid effusion. Physical exam: Patient seen and fully evaluated at bedside this morning. Currently he reports feeling slight weakness in his left arm and chest heaviness throughout the left side. He states tingling in bilateral lower extremities and left upper extremity. Speech is currently clear and no facial droop noted. Patient denies having headache, lightheadedness, dizziness, chest pain, palpitations, or any other complaints at this time. Vital signs reviewed and stable. General: Nontoxic, no distress and appears stated age. Derm: Skin warm and dry, normal coloration for ethnicity. Head: Atraumatic, normocephalic and symmetric. Eyes: EOM's intact, no lid lag, and anicteric sclera Mouth: no lip lesions, mucus membranes moist Cardiovascular: regular rate and rhythm with normal S1S2, no murmur, positive posterior tibial pulses bilaterally, and cap refill < 2 seconds. Lungs: Respirations even, regular, and unlabored on room air. Lungs CTA bilaterally, no rhonchi, no rales, no wheezing, and no accessory muscle usage. Abdominal: soft, nontender to palpation, no guarding, no appreciable organomegaly Ext:. No gross muscle atrophy, no edema, no contractures. Patient has been patient does has light weakness to left upper extremity, lower extremities equal strength. Neuro: Speech clear, face symmetrical and CN II-XII grossly intact with no noted focal neuro deficits Psych: Alert and oriented to person, place, time, and situation. Appropriate and pleasant affect. Assessment and Plan of Care: Scattered white matter lesions, concerning for demyelination process such as MS Left upper and lower extremity weakness with slurred speech. Likely secondary to above. Abnormal echocardiogram, concerns for PFO with [id number] shunt -Neurology following, discussed in detail with neurologist, Dr. Noble. Patient being started on high-dose IV steroids Solu-Medrol 1000 mg daily x 5 days. Order also placed for MRI brain with IV contrast to evaluate for active demyelinating lesions. -Echocardiogram completed showing a normal preserved EF of 50 to 55% with mild mitral, tricuspid, and trivial aortic insufficiency, no significant pulmonary hypertension and bubble study suggesting a possible PFO with [id number]-[id number] shunt. -Cardiology consulted for PFO and evaluation for SOHAIL. -MRI completed showing scattered white matter lesions most prominently within the periventricular white matter with additional subcortical white matter and danny lesions, periventricular white matter lesions demonstrate a Alvarez finger appearance highly suggestive of demyelination concerning for multiple sclerosis and a right mastoid effusion. -TSH 0.050., Lipid profile unremarkable. -NIH stroke scale with neuro checks every 4 hours and as needed -Continue aspirin 81 mg daily and atorvastatin 40 mg daily -PT/OT and speech and language pathologist consulted for evaluation. -Fall precautions and provide pt with assistance as needed Anxiety with depression -Continue Wellbutrin 150 mg daily. -Order placed for Xanax 0.5 mg 3 times daily as needed for anxiety. Nicotine dependence -Patient with longstanding history of nicotine use via smoking reports quit smoking 4 months ago and now nicotine dependent via vaping. Strongly recommend smoking cessation. Order placed for nicotine patch 14 mg daily. Data and imaging reviewed: -Echocardiogram completed showing a normal preserved EF of 50 to 55% with mild mitral, tricuspid, and trivial aortic insufficiency, no significant pulmonary hypertension and bubble study suggesting a possible PFO with [id number]-[id number] shunt. -MRI completed showing scattered white matter lesions most prominently within the periventricular white matter with additional subcortical white matter and danny lesions, periventricular white matter lesions demonstrate a Alvarez finger appearance highly suggestive of demyelination concerning for multiple sclerosis and a right mastoid effusion. -Labs reviewed. CBC and CMP unremarkable. Blood glucose 103. Magnesium 2.3. TSH 0.050., Lipid profile unremarkable. -Vital signs reviewed. Blood pressure 120/82, heart rate 61, respiratory rate 13, temp 97.6 F, and SpO2 of 98% on room air CODE STATUS: Full code DVT prophylaxis: Lovenox Discussed with: Patient, RN, and neurologist Anticipated discharge date: Pending clinical course Anticipated discharge place: Home Patient was seen independently by Nurse Pracitioner. This document was prepared using [employer] dictation software. Please allow for errors in soil checker, while rare they do occur. Uri Wolff NP rendered care for this patient independently, reviewed the findin gs and plan as documented in the note above and agree with plan. I did not physically speak with or examine the patient on this date. Objective - Vital Signs Vital signs: Vital Signs Temp 98.1 F 11/09/24 18:23 Pulse 75 11/10/24 05:00 Resp 18 11/10/24 05:00 BP 126/70 11/10/24 05:00 Pulse Ox 95 11/10/24 05:00 FiO2 Intake & Output 11/09/24 11/10/24 11/10/24 18:59 06:59 18:59 Weight 108.862 kg - Labs CBC & Chem 7: 11/10/24 06:42 11/10/24 06:42 Labs: Abnormal Lab Results - Last 24 Hours (Table) 11/09/24 11/09/24 11/10/24 Range/Units 18:51 18:51 06:42 APTT 21.9 L (22.0-30.0) sec Glucose 104 H 103 H (74-99) mg/dL
[2024-11-10] MEDS: NICOTINE 14MG/24HR PATCH TRANSDERM SCH (18:46)
[2024-11-10] MEDS: ALPRAZolam 0.5 MG TAB PO PRN (22:17)
[2024-11-11 06:03] LABS: HCT 47.3 % (39.0-53.0); HGB 15.7 gm/dL (13.0-17.5); MCH 29.8 pg (25.0-35.0); MCHC 33.1 g/dL (31.0-37.0); Mean Platelet Volume 7.4; Platelet Count 335 k/uL (150-450); RBC 5.26 m/uL (4.30-5.90); RDW 12.8 % (11.5-15.5); WBC 13.3 k/uL (3.8-10.6)
[2024-11-11 06:25] LABS: ALT 33 U/L (4-49); AST 25 U/L (17-59); African American GFR (CKD) >90 (>60 ml/min/1.73 sqM); Albumin 4.8 g/dL (3.5-5.0); Alkaline Phosphatase 51 U/L (38-126); Anion Gap 13 mmol/L; Blood Urea Nitrogen 17 mg/dL (9-20); Calcium 10.3 mg/dL (8.4-10.2); Carbon Dioxide 22 mmol/L (22-30); Chloride 102 mmol/L (98-107); Glucose 142 mg/dL (74-99); Magnesium 1.9 mg/dL (1.6-2.3); Non-African American GFR(CKD) >90 (>60 ml/min/1.73 sqM); Sodium 137 mmol/L (137-145); Total Bilirubin 0.6 mg/dL (0.2-1.3); Total Protein 7.8 g/dL (6.3-8.2)
[2024-11-11] MEDS ORDERED: DEXTROSE 50% SYRINGE 50 ML IVP PRN ×2 (08:51)
[2024-11-11 13:06] LABS: Glucose,Whole Blood 331 mg/dL (70-110)
[2024-11-11] MEDS: INSULIN LISPRO (HumaLOG) 100 UNIT/ML 10 mL VL SQ SCH (13:12)
--- NOTE | 2024-11-11 13:19 | P.PN ---
Subjective Progress Note Date: 11/11/24 Hospital course: Patient is a pleasant 34-year-old male with a past medical history of anxiety with depression, hernia repair in 2011 and nicotine use via vaping. He presented to the emergency department on 11/09/2024 as instructed by his PCP secondary to tingling in bilateral lower extremities and weakness in left upper and lower extremity. His family also reporting slurred speech. On arrival to our facility, patient underwent evaluation in the emergency department. Initial NIHSS score was 5. Vital signs upon arrival show blood pressure 154/91, heart r ate 85, respiratory rate 18, temp 98.1 F, and SpO2 of 90% on room air. EKG was completed showing normal sinus rhythm with occasional PVC. No noted T wave or ST abnormality showing no signs of acute ischemia upon personal review and interpretation. CT head completed negative for acute intracranial hemorrhage. Chest x-ray negative for acute cardiopulmonary process. CTA head and neck completed negative for acute intracranial process showing no evidence of hemodynamically significant stenosis at carotid bifurcations. Patient admitted under our services with consultation to neurology. Echocardiogram completed showing a normal preserved EF of 50 to 55% with mild mitral, tricuspid, and triv ial aortic insufficiency, no significant pulmonary hypertension and bubble study suggesting a possible PFO with [id number] shunt. TSH 0.050., Lipid profile unremarkable. Cardiology consulted for PFO and evaluation for SOHAIL. MRI completed showing scattered white matter lesions most prominently within the periventricular white matter with additional subcortical white matter and danny lesions, periventricular white matter lesions demonstrate a Alvarez finger appearance highly suggestive of demyelination concerning for multiple sclerosis and a right mastoid effusion. MRI brain with contrast then completed showing redemonstration of subcortical and periventricular white matter with FLAIR hyperintense signal lesions and open ring incomplete enhancement involving the left parietal periventricular white matter lesion most consistent with active demyelination. Physical exam: Patient seen and fully evaluated at bedside this morning. Patient reports he is already feeling slightly better since initiation of high-dose steroids. Patient's mother also at bedside visiting. All questions answered. Vital signs reviewed and stable. General: Nontoxic, no distress and appears stated age. Derm: Skin warm and dry, normal coloration for ethnicity. Head: Atraumatic, normocephalic and symmetric. Eyes: EOM's intact, no lid lag, and anicteric sclera Mouth: no lip lesions, mucus membranes moist Cardiovascular: regular rate and rhythm with normal S1S2, no murmur, positive posterior tibial pulses bilaterally, and cap refill < 2 seconds. Lungs: Respirations even, regular, and unlabored on room air. Lungs CTA bilaterally, no rhonchi, no rales, no wheezing, and no accessory muscle usage. Abdominal: soft, nontender to palpation, no guarding, no appreciable organomegaly Ext:. No gross muscle atrophy, no edema, no contractures. Patient has been p atient does has light weakness to left upper extremity, lower extremities equal strength. Neuro: Speech clear, face symmetrical and CN II-XII grossly intact with no noted focal neuro deficits Psych: Alert and oriented to person, place, time, and situation. Appropriate and pleasant affect. Assessment and Plan of Care: Scattered white matter lesions, concerning for acute demyelination process such as MS Left upper and lower extremity weakness with slurred speech. Likely secondary to above. Abnormal echocardiogram, concerns for PFO with [id number] shunt -Neurology following, discussed in detail with neurologist, Dr. Noble. Patient to continue high-dose IV steroids with Solu-Medrol 1000 mg daily x 5 days and may consider repeating MRI on Wednesday -Solu-Medrol 1000 mg IV PB daily -Cardiology consulted for PFO and evaluation for SOHAIL. -Continue neuro checks every 4 hours and as needed -Continue aspirin 81 mg daily and atorvastatin 40 mg daily -PT/OT and speech and language pathologist consulted for evaluation. -Fall precautions and provide pt with assistance as needed Hyperglycemia -Likely secondary to use of high-dose steroids, patient placed on glycemic protocol with Humalog sliding scale and we will follow-up with hemoglobin A1c. Leukocytosis -Likely reactive secondary to high-dose steroids. No signs of acute infection Hypercalcemia -Patient with mild hypercalcemia with calcium of 10.3. Continue gentle IV fluid hydration with 0.9% normal saline at 75 cc/h. Monitor for resolution. Anxiety with depression -Continue Wellbutrin 150 mg daily. -Order placed for Xanax 0.5 mg 3 times daily as needed for anxiety. Nicotine dependence -Patient with longstanding history of nicotine use via smoking reports quit smoking 4 months ago and now nicotine dependent via vaping. Strongly recommend smoking cessation. Order placed for nicotine patch 14 mg daily. Data and imaging reviewed: --MRI brain with contrast then completed showing redemonstration of subcortical and periventricular white matter with FLAIR hyperintense signal lesions and open ring incomplete enhancement involving the left parietal periventricular white matter lesion most consistent with active demyelination. -Labs reviewed. CBC showing mild leukocytosis with WBC count of 13.3 and CMP unremarkable. Blood glucose elevated at 142. Magnesium 1.9 and calcium also slightly elevated at 10.3 -Vital signs reviewed. Blood pressure 130/85, heart rate 94, respiratory rate 16, temp 97.6 F, and SpO2 of 96% on room air. CODE STATUS: Full code DVT prophylaxis: Lovenox Discussed with: Patient, RN, and neurologist Anticipated discharge date: Pending clinical course Anticipated discharge place: Home Patient was seen independently by Nurse Pracitioner. This document was prepared using [employer] dictation software. Please allow for errors in operations boardman, while rare they do occur. Uri Wolff NP rendered care for this patient independently, reviewed the findings and plan as documented in the note above and agree with plan. I did not physically speak with or examine the patient on this date. Objective - Vital Signs Vital signs: Vital Signs Temp 97.6 F 11/11/24 08:08 Pulse 94 11/11/24 08:08 Resp 16 11/11/24 08:08 BP 130/85 11/11/24 08:08 Pulse Ox 96 11/11/24 08:08 FiO2 - Labs CBC & Chem 7: 11/11/24 05:41 11/11/24 05:41 Labs: Abnormal Lab Results - Last 24 Hours (Table) 11/10/24 11/11/24 11/11/24 Range/Units 06:41 05:41 05:41 WBC 13.3 H (3.8-10.6) k/uL Glucose 142 H (74-99) mg/dL Calcium 10.3 H (8.4-10.2) mg/dL Vitamin D 25-Hydroxy 11.9 L (30.0-100.0) ng/mL
--- NOTE | 2024-11-11 14:40 | P.CRDCN ---
History of Present Illness Consult date: 11/11/24 Reason for Consult (text): PFO History of present illness: The patient is a 34-year-old male who presented to the hospital with left-sided weakness numbness and weakness. Concern for CVA, patient underwent CT angio as well as MRI. Patient states this was an acute onset. No recent illness. DIAGNOSTICS: CT scan of the brain shows no acute intracranial hemorrhage, mass effect or midline shift CT angio shows no evidence for intracranial aneurysm, or high-grade stenosis MRI of the brain shows no evidence of intracranial mass or subacute/acute infarct Chest x-ray shows no acute cardiopulmonary process Echocardiogram reveals preserved LV function with positive saline bubble study for [id number] shunt with Valsalva Lab data: WBC 13.3, hemoglobin 15.7, hematocrit 47.3, platelet 3 335, sodium 137, potassium 5.0, BUN 17, creatinine 0.74, magnesium 1.9, AST 25, ALT 33, troponin 0.02, triglycerides 83, LDL 124, HDL 45, TSH 2.05 REVIEW OF SYSTEMS: No fever or chills. No cough or expectoration. No diaphoresis. Patient denies headache, dizziness, blurred vision, double vision. Patient denies any stomach discomfort. No nausea, vomiting. No hematochezia. No hematemesis. Denies any black stools or blood in his stools. Denies dysuria or hematuria. No muscle weakness or numbness. PHYSICAL EXAMINATION: This is a 34-year-old male in no apparent distress at the time of my examination. HEENT: Head is atraumatic, normocephalic. Pupils are equal, round. Sclerae anicteric. Conjunctivae are clear. Mucous membranes of the mouth are moist. Neck is supple. There is no jugular venous distention. No carotid bruit is heard. CHEST EXAMINATION: Lungs are clear to auscultation. No chest wall tenderness is noted on palpation or with deep breathing. HEART EXAMINATION: Heart regular rate and rhythm. S1, S2 heard. No murmurs, gallops or rub. ABDOMEN: Soft, nontender. Bowel sounds are heard. No organomegaly noted. EXTREMITIES: 2+ peripheral pulses with no evidence of peripheral edema and no calf tenderness noted. NEUROLOGIC EXAMINATION: Patient is awake, alert and oriented x3. FINAL ASSESSMENT AND PLAN: Acute left-sided weakness Abnormal MRI of the brain, demyelination PFO, incidental finding Current smoker PLAN: No further cardiac workup at this time No correlation between incidental PFO finding and demyelination findings on MRI report Outpatient follow-up in [address] Kulkarni I am dictating on behalf of Dr Kamaljit Kulkarni's history/physical and assessment/plan. Past Medical History Past Medical History: No Reported History History of Any Multi-Drug Resistant Organisms: None Reported Past Surgical History: Hernia Repair Additional Past Surgical History / Comment(s): hernia surgery in 2011 Past Anesthesia/Blood Transfusion Reactions: No Reported Reaction Past Psychological History: No Psychological Hx Reported Smoking Status: Vaper Past Alcohol Use History: None Reported Past Drug Use History: None Reported Medications and Allergies Home Medications Medication Instructions Recorded Confirmed Type FLUoxetine HCL [PROzac] 10 mg PO DIRECTED 11/09/24 11/09/24 History Fexofenadine HCl [Huong Allergy] 180 mg PO BID 11/09/24 11/09/24 History Wilda 500 mg PO DAILY 11/09/24 11/09/24 History Ginseng Complex 1 cap PO DAILY 11/09/24 11/09/24 History Hydrocortisone Cream 1 applic TOPICAL BID PRN 11/09/24 11/09/24 History [Hydrocortisone 2.5% Cream] Ketoconazole 2% Shampoo [Nizoral] 1 applic TOPICAL Q2D 11/09/24 11/09/24 History Magnesium 500 mg PO BID 11/09/24 11/09/24 History Multivit-Mins/Iron/Folic/Lycop 1 tab PO DAILY 11/09/24 11/09/24 History [Centrum Men's Tablet] Triamcinolone 0.1% Cream [Kenalog 1 applicatio TOPICAL BID PRN 11/09/24 11/09/24 History 0.1% Cream] buPROPion XL [Wellbutrin XL] 150 mg PO DAILY 11/09/24 11/09/24 History Allergies Allergy/AdvReac Type Severity Reaction Status Date / Time No Known Allergies Allergy Verified 11/09/24 19:47 Physical Exam Vitals: Vital Signs Temp Pulse Resp BP Pulse Ox 11/11/24 08:08 97.6 F 94 16 130/85 96 11/11/24 06:00 81 16 122/76 97 11/11/24 02:08 86 18 120/78 98 11/10/24 22:37 97.5 F L 103 H 16 121/73 97 11/10/24 10:00 109 H 13 120/79 99 Results 11/11/24 05:41 11/11/24 05:41 Cardiac Enzymes 11/11/24 Range/Units 05:41 AST 25 (17-59) U/L Lipids 11/10/24 Range/Units 06:42 Triglycerides 83.20 (0.00-149.00) mg/dL Cholesterol 187.00 (0.00-200.00) mg/dL HDL Cholesterol 45.80 (40.00-60.00) mg/dL Cholesterol/HDL Ratio 4.08 Ratio CBC 11/11/24 Range/Units 05:41 WBC 13.3 H (3.8-10.6) k/uL RBC 5.26 (4.30-5.90) m/uL Hgb 15.7 (13.0-17.5) gm/dL Hct 47.3 (39.0-53.0) % Plt Count 335 (150-450) k/uL Comprehensive Metabolic Panel 11/11/24 Range/Units 05:41 Sodium 137 (137-145) mmol/L Potassium 5.0 (3.5-5.1) mmol/L Chloride 102 (98-107) mmol/L Carbon Dioxide 22 (22-30) mmol/L BUN 17 (9-20) mg/dL Creatinine 0.74 (0.66-1.25) mg/dL Glucose 142 H (74-99) mg/dL Calcium 10.3 H (8.4-10.2) mg/dL AST 25 (17-59) U/L ALT 33 (4-49) U/L Alkaline Phosphatase 51 (38-126) U/L Total Protein 7.8 (6.3-8.2) g/dL Albumin 4.8 (3.5-5.0) g/dL Current Medications Generic Name Dose Route Start Last Admin Trade Name Freq PRN Reason Stop Dose Admin Alprazolam 0.5 mg 11/10/24 17:53 11/10/24 22:17 Alprazolam 0.5 Mg Tab PO 0.5 mg TID PRN Administration Anxiety Aspirin 81 mg 11/10/24 09:00 11/10/24 09:30 Aspirin 81 Mg PO 81 mg DAILY STEFANIE Administration Atorvastatin Calcium 40 mg 11/09/24 22:45 11/10/24 09:30 Atorvastatin 40 Mg Tab PO 40 mg DAILY STEFANIE Administration Bupropion HCl 150 mg 11/10/24 09:00 11/10/24 09:30 Bupropion Xl 150 Mg Tab.Er.24h PO 150 mg DAILY STEFANIE Administration Dextrose/Water 25 ml 11/11/24 08:51 Dextrose 50% Syringe 50 Ml IVP PER PROTOCOL PRN Hypoglycemia Protocol Dextrose/Water 50 ml 11/11/24 08:51 Dextrose 50% Syringe 50 Ml IVP PER PROTOCOL PRN Hypoglycemia Protocol Enoxaparin Sodium 40 mg 11/10/24 09:00 11/10/24 09:30 Enoxaparin 40 Mg/0.4 Ml Syringe SQ 40 mg DAILY STEFANIE Administration Sodium Chloride 1,000 mls @ 75 mls/hr 11/10/24 01:45 11/10/24 22:18 Saline 0.9% IV 75 mls/hr .[id number] STEFANIE Administration Methylprednisolone Sodium 250 mls @ 250 mls/hr 11/10/24 16:15 11/10/24 17:32 Succinate 1,000 mg/ Sodium IVPB 250 mls/hr Chloride DAILY STEFANIE Administration Insulin Human Lispro 0 unit 11/11/24 12:30 Insulin Lispro (Humalog) 100 Unit/Ml 10 Ml Vl SQ ACHS STEFANIE Protocol Loratadine 10 mg 11/10/24 09:00 11/10/24 09:30 Loratadine 10 Mg Tab PO 10 mg DAILY STEFANIE Administration Nicotine 1 patch 11/10/24 18:00 11/10/24 18:46 Nicotine 14mg/24hr Patch TRANSDERM 1 patch DAILY STEFANIE Administration 11/11/24 05:41 11/11/24 05:41
[2024-11-11 17:01] LABS: Glucose,Whole Blood 153 mg/dL (70-110)
[2024-11-11] MEDS ORDERED: HYDROcodone/APAP 5-325MG 1 EACH TAB PO PRN (17:42)
[2024-11-11] MEDS: ACETAMINOPHEN TAB 325 MG TAB PO PRN (18:21)
[2024-11-11] MEDS: ERGOCALCIFEROL 1,250 MCG (50,000 IU) CAPSULE PO SCH (18:21)
[2024-11-11 20:43] LABS: Glucose,Whole Blood 139 mg/dL (70-110)
[2024-11-12] MEDS: PANTOPRAZOLE 40 MG TABLET PO STA (03:45)
[2024-11-12 06:29] LABS: Glucose,Whole Blood 131 mg/dL (70-110)
[2024-11-12] MEDS ORDERED: PANTOPRAZOLE 40 MG TABLET PO SCH (07:30)
--- NOTE | 2024-11-12 09:15 | P.PN ---
Subjective Progress Note Date: 11/11/24 Patient was seen for follow-up. Patient's mother was also present by the bedside. Patient states that a few years ago, he used to work at the factory about 5 years ago. His legs would be very achy and painful while he is to work. Once he would sit down or lay down, he would have tingling in the legs from hips(pointing to his groin region) down lasting for about a few minutes to half an hour to an hour, and then it will go away. He walks fine otherwise. This will bother him about 4 out of 5 days of the week gaze. Denies any history of vertigo. No constant areas of numbness or tingling. Patient states that last year he had multiple bouts of upper respiratory infection and strep throat. Objective - Vital Signs Vital signs: Vital Signs Temp 97.6 F 11/11/24 08:08 Pulse 109 H 11/11/24 10:35 Resp 18 11/11/24 10:35 BP 153/94 11/11/24 10:35 Pulse Ox 95 11/11/24 10:35 FiO2 - Exam Examination is unchanged. - Labs CBC & Chem 7: 11/11/24 05:41 11/11/24 05:41 Labs: Abnormal Lab Results - Last 24 Hours (Table) 11/10/24 11/11/24 11/11/24 Range/Units 06:41 05:41 05:41 WBC 13.3 H (3.8-10.6) k/uL Glucose 142 H (74-99) mg/dL POC Glucose (mg/dL) (70-110) mg/dL Calcium 10.3 H (8.4-10.2) mg/dL Vitamin D 25-Hydroxy 11.9 L (30.0-100.0) ng/mL 11/11/24 Range/Units 13:05 WBC (3.8-10.6) k/uL Glucose (74-99) mg/dL POC Glucose (mg/dL) 331 H (70-110) mg/dL Calcium (8.4-10.2) mg/dL Vitamin D 25-Hydroxy (30.0-100.0) ng/mL Assessment and Plan Assessment: * TAKE AWAY MAN demyelination, possible multiple sclerosis. Patient has presented with intermittent numbness and tingling of the left side of the body, with some weakness. Acute stroke ruled out. MRI of the brain revealed multiple areas of subcortical and periventricular white matter lesions, some of them perpendicular to the lateral ventricles consistent with Alvarez's fingers. One of the lesion was enhancing, but was on the ipsilateral side of the symptoms. Overall MRI pattern is highly suggestive of multiple sclerosis. * Ex tobacco use * Currently vapes Plan: MRI of the brain without contrast revealed no evidence of intracranial mass or acute/subacute infarct. Scattered white matter lesions, most prominently within the periventricular white matter with additional subcortical white matter and danny lesions. The periventricular white matter lesions demonstrate an Alvarez finger appearance, highly suggestive of demyelination including multiple sclerosis versus other etiologies. Further workup is recommended. Right mastoid effusion. I personally reviewed MRI, agree with the findings. MRI of the brain with contrast revealed redemonstration of subcortical and periventricular white matter FLAIR hyperintense signal lesions. There is open drink incomplete enhancement involving the left parietal periventricular white matter lesion, most consistent with active demyelination. I presently reviewed MRI, agree with the findings. This active lesion is probably asymptomatic, as the symptoms are on the ipsilateral side. Await MRI of the cervical and thoracic spines with and without contrast. Continue Solu-Medrol 1 g IV PB daily for 5 days. Today is day #2. 2-D echo revealed normal LV size, preserved systolic function with EF 55%. Borderline LVH. No obvious regional wall motion abnormalities. Normal left atrial size. Positive agitated saline bubble study for [id number] shunt with Valsalva. CTA head and neck showed: No evidence for hemodynamically significant stenosis at the carotid bifurcation. No significant diameter reduction to account for the patient's symptoms. No evidence for intracranial aneurysm or high-grade stenosis. Fasting a.m. lipid panel cholesterol 187, LDL 124, HDL 45, triglycerides 83. Hemoglobin A1c B12 434, folate 17.50, TSH 2.05. Vitamin D is low 11.9. We will start vitamin D replacement. Await TRICIA, Lyme, ANA level. Optimize control of blood pressure. Continue aspirin 81 mg daily. PT, OT, speech therapy DVT prophylaxis: Lovenox 40 mg subcu daily Cardiology input appreciated for PFO noted on 2D echo. They're feeling it is incidental findings, and will follow patient outpatient. Dr. Dean Emery to start neurology service for morning.
[2024-11-12 09:32] LABS: HCT 44.9 % (39.6-50.0); HGB 14.3 g/dL (13.0-17.0); MCH 29.6 pg (27.0-32.0); MCHC 31.8 g/dL (32.0-37.0); Mean Platelet Volume 10.2 FL (9.5-12.2); NRBC Per 100 WBC 0 X 10*3/uL (0.00-0.01); Platelet Count 340 X 10*3/uL (140-440); RBC 4.83 X 10*6/uL (4.40-5.60); WBC 26.29 X 10*3/uL (4.50-10.00)
[2024-11-12 09:40] LABS: Blood Urea Nitrogen 13.3 mg/dL (9.0-27.0); Glucose 183 mg/dL (70-110)
[2024-11-12 09:41] LABS: ALT 30 U/L (10-49); AST 20 U/L (14-35); Albumin 4.3 g/dL (3.8-4.9); Albumin/Globulin Ratio 1.87 Ratio (1.60-3.17); Alkaline Phosphatase 59 U/L (41-126); BUN/Creat Ratio 14.78 Ratio (12.00-20.00); Calcium 9.6 mg/dL (8.7-10.3); Carbon Dioxide 22.5 mmol/L (21.6-31.8); Chloride 106 mmol/L (96-109); Globulin 2.3 g/dL (1.6-3.3); Magnesium 1.9 mg/dL (1.5-2.4); Potassium 4.4 mmol/L (3.5-5.5); Sodium 143 mmol/L (135-145); Total Bilirubin <0.2 mg/dL (0.3-1.2); Total Protein 6.6 g/dL (6.2-8.2)
[2024-11-12] MEDS: CALCIUM CARBONATE 500 MG CHEWABLE PO PRN (10:25)
[2024-11-12 11:14] LABS: Glucose,Whole Blood 144 mg/dL (70-110)
--- NOTE | 2024-11-12 12:31 | P.PN ---
Subjective Progress Note Date: 11/12/24 Hospital course: Patient is a pleasant 34-year-old male with a past medical history of anxiety with depression, hernia repair in 2011 and nicotine use via vaping. He presented to the emergency department on 11/09/2024 as instructed by his PCP secondary to tingling in bilateral lower extremities and weakness in left upper and lower extremity. His family also reporting slurred speech. On arrival to our facility, patient underwent evaluation in the emergency department. Initial NIHSS score was 5. Vital signs upon arrival show blood pressure 154/91, heart r ate 85, respiratory rate 18, temp 98.1 F, and SpO2 of 90% on room air. EKG was completed showing normal sinus rhythm with occasional PVC. No noted T wave or ST abnormality showing no signs of acute ischemia upon personal review and interpretation. CT head completed negative for acute intracranial hemorrhage. Chest x-ray negative for acute cardiopulmonary process. CTA head and neck completed negative for acute intracranial process showing no evidence of hemodynamically significant stenosis at carotid bifurcations. Patient admitted under our services with consultation to neurology. Echocardiogram completed showing a normal preserved EF of 50 to 55% with mild mitral, tricuspid, and triv ial aortic insufficiency, no significant pulmonary hypertension and bubble study suggesting a possible PFO with mjorq-wq-kzok shunt. TSH 0.050., Lipid profile unremarkable. Cardiology consulted for PFO and evaluation for SOHAIL. MRI completed showing scattered white matter lesions most prominently within the periventricular white matter with additional subcortical white matter and danny lesions, periventricular white matter lesions demonstrate a Alvarez finger appearance highly suggestive of demyelination concerning for multiple sclerosis and a right mastoid effusion. MRI brain with contrast then completed showing redemonstration of subcortical and periventricular white matter with FLAIR hyperintense signal lesions and open ring incomplete enhancement involving the left parietal periventricular white matter lesion most consistent with active demyelination. Physical exam: Patient seen and fully evaluated at bedside this morning. He is ambulating in room and states he is doing much better since arrival to our facility. He reports continued intermittent heaviness in his lower extremities, pain in hips, and an intermittent numbness of left upper and lower extremity but does state it has improved significantly and occurring less often today.. He currently denies having any headache, lightheadedness, dizziness, chest pain, palpitations, or shortness of breath at this time. Vital signs reviewed and stable. General: Nontoxic, no distress and appears stated age. Derm: Skin warm and dry, normal coloration for ethnicity. Head: Atraumatic, normocephalic and symmetric. Eyes: EOM's intact, no lid lag, and anicteric sclera Mouth: no lip lesions, mucus membranes moist Cardiovascular: regular rate and rhythm with normal S1S2, no murmur, positive posterior tibial pulses bilaterally, and cap refill < 2 seconds. Lungs: Respirations even, regular, and unlabored on room air. Lungs CTA bilaterally, no rhonchi, no rales, no wheezing, and no accessory muscle usage. Abdominal: soft, nontender to palpation, no guarding, no appreciable org anomegaly Ext:. No gross muscle atrophy, no edema, no contractures. Patient has been patient does has light weakness to left upper extremity, lower extremities equal strength. Neuro: Speech clear, face symmetrical and CN II-XII grossly intact with no noted focal neuro deficits Psych: Alert and oriented to person, place, time, and situation. Appropriate and pleasant affect. Assessment and Plan of Care: Scattered white matter lesions, concerning for acute demyelination process such as MS Left upper and lower extremity weakness with slurred speech. Likely secondary to above. Abnormal echocardiogram, concerns for PFO with hdcmg-vp-ludl shunt -Neurology following, discussed in detail with neurologist, Dr. Emery. Patient to continue high-dose IV steroids with Solu-Medrol 1000 mg daily x 5 days and scheduled for MRI cervical/thoracic spine -Solu-Medrol 1000 mg IV PB daily (day 3 of 5) -Cardiology evaluated for PFO and evaluation for SOHAIL. Cardiology stated no need for further workup and clearing pt from their perspective. -Continue neuro checks every 4 hours and as needed -Continue aspirin 81 mg daily and atorvastatin 40 mg daily -PT/OT and speech and language pathologist consulted for evaluation. -Fall precautions and provide pt with assistance as needed -MRI cervical and thoracic spine to be completed. Hyperglycemia in the setting of high-dose steroid use -Hemoglobin A1c 5.3%. -Secondary to high-dose steroid usage resulting in elevated blood glucose levels, will continue glycemic protocol with Humalog sliding scale. Leukocytosis -Believed to be likely reactive secondary to high-dose steroids. No signs of acute infection Hypercalcemia -Hypercalcemia resolved with IV fluid hydration. Current calcium 9.6. Anxiety with depression -Continue Wellbutrin 150 mg daily. -Order placed for Xanax 0.5 mg 3 times daily as needed for anxiety. Nicotine dependence -Patient with longstanding history of nicotine use via smoking reports quit smoking 4 months ago and now nicotine dependent via vaping. Strongly recommend smoking cessation. Order placed for nicotine patch 14 mg daily. Data and imaging reviewed: -Morning labs reviewed showing leukocytosis with WBC count of 26.29. BMP showing elevated anion gap of 14.50 otherwise normal findings. Blood glucose elevated at 183. Hemoglobin A1c normal findings at 5.3%. Liver profile un remarkable. Magnesium 1.9. -Vital signs reviewed. Blood pressure 166, heart rate 77, respiratory rate 18, temp 98.1 F, and SpO2 of 95% on room air. CODE STATUS: Full code DVT prophylaxis: Lovenox Discussed with: Patient, RN, and neurologist Anticipated discharge date: Pending clinical course Anticipated discharge place: Home Patient was seen independently by Nurse Pracitioner. This document was prepared using [employer] dictation software. Please allow for errors in wheel presser, while rare they do occur. Uri Wolff NP rendered care for this patient independently, reviewed the findings and plan as documented in the note above and agree with plan. I did not physically speak with or examine the patient on this date. Objective - Vital Signs Vital signs: Vital Signs Temp 98.1 F 11/12/24 07:01 Pulse 77 11/12/24 07:01 Resp 18 11/12/24 07:01 BP 109/66 11/12/24 07:01 Pulse Ox 95 11/12/24 07:01 FiO2 Intake & Output 11/11/24 11/12/24 11/12/24 18:59 06:59 18:59 Intake Total 1080 2160 Balance 1080 2160 Weight 108.862 kg 111 kg Intake: Oral 1080 2160 Other: Voiding Method Toilet # Voids 4 8 - Labs CBC & Chem 7: 11/12/24 03:15 11/12/24 03:15 Labs: Abnormal Lab Results - Last 24 Hours (Table) 11/11/24 11/11/24 11/11/24 Range/Units 13:05 16:59 20:41 POC Glucose (mg/dL) 331 H 153 H 139 H (70-110) mg/dL 11/12/24 Range/Units 06:27 POC Glucose (mg/dL) 131 H (70-110) mg/dL
--- NOTE | 2024-11-12 13:34 | P.PN ---
Subjective Progress Note Date: 11/12/24 I am seeing the patient for the first time during this hospital visit. Please refer to Dr. Noble's note for further details. Patient states that he has been having symptoms for the last 10 years that he thinks of pain in his legs and those were nonspecific but this time around he had worsening numbness on the left side. Result his primary doctor notified him to come to the hospital for further evaluation to rule out a stroke. In our facility he had MRI of the brain and there was concern for multiple sclerosis and patient is on IV steroids and patient feels drastically better with IV steroids. He is pending the rest of the the MRIs. He denies any new neurological issues. Objective - Vital Signs Vital signs: Vital Signs Temp 98.1 F 11/12/24 07:01 Pulse 77 11/12/24 07:01 Resp 18 11/12/24 07:01 BP 109/66 11/12/24 07:01 Pulse Ox 95 11/12/24 07:01 FiO2 Intake & Output 11/11/24 11/12/24 11/12/24 18:59 06:59 18:59 Intake Total 1080 2160 Balance 1080 2160 Weight 108.862 kg 111 kg Intake: Oral 1080 2160 Other: Voiding Method Toilet # Voids 4 8 - Exam General: Patient is sitting in a recliner chair and he is not in acute distress Neuro: Patient is awake alert oriented to self place and time. Is following simple commands. No aphasia No facial weakness. No dysarthria Motor strength is 5 out of 5 throughout Sensation is normal to touch throughout - Labs CBC & Chem 7: 11/12/24 03:15 11/12/24 03:15 Labs: Abnormal Lab Results - Last 24 Hours (Table) 11/11/24 11/11/24 11/12/24 Range/Units 16:59 20:41 03:15 WBC 26.29 H (4.50-10.00) X 10*3/uL MCHC 31.8 L (32.0-37.0) g/dL Anion Gap (4.00-12.00) mmol/L Glucose (70-110) mg/dL POC Glucose (mg/dL) 153 H 139 H (70-110) mg/dL Total Bilirubin (0.3-1.2) mg/dL 0311/12/24 11/12/24 Range/Units 03:15 06:27 11:13 WBC (4.50-10.00) X 10*3/uL MCHC (32.0-37.0) g/dL Anion Gap 14.50 H (4.00-12.00) mmol/L Glucose 183 H (70-110) mg/dL POC Glucose (mg/dL) 131 H 144 H (70-110) mg/dL Total Bilirubin <0.2 L (0.3-1.2) mg/dL Assessment and Plan Assessment: * MAT SEWER demyelination, 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 Patient has presented with intermittent numbness and tingling of the left side of the body, with some weakness. Acute stroke ruled out. MRI of the brain revealed multiple areas of subcortical and periventricular white matter lesions, some of them perpen dicular to the lateral ventricles consistent with Alvarez's fingers. One of the lesion was enhancing, but was on the ipsilateral side of the symptoms. Overall MRI pattern is highly suggestive of multiple sclerosis. * Ex tobacco use * Currently vapes Plan: MRI of the brain without contrast revealed no evidence of intracranial mass or acute/subacute infarct. Scattered white matter lesions, most prominently within the periventricular white matter with additional subcortical white matter and danny lesions. The periventricular white matter lesions demonstrate an Alvarez finger appearance, highly suggestive of demyelination including multiple sclerosis versus other etiologies. Further workup is recommended. Right mastoid effusion. I personally reviewed MRI, agree with the findings. MRI of the brain with contrast revealed redemonstration of subcortical and periventricular white matter FLAIR hyperintense signal lesions. There is open drink incomplete enhancement involving the left parietal periventricular white matter lesion, most consistent with active demyelination. I presently reviewed MRI, agree with the findings. This active lesion is probably asymptomatic, as the symptoms are on the ipsilateral side. Await MRI of the cervical and thoracic spines with and without contrast. Continue Solu-Medrol 1 g IV PB daily for 5 days. Today is day #3. 2-D echo revealed normal LV size, preserved systolic function with EF 55%. Borderline LVH. No obvious regional wall motion abnormalities. Normal left atrial size. Positive agitated saline bubble study for [id number] shunt with Valsalva. CTA head and neck showed: No evidence for hemodynamically significant stenosis at the carotid bifurcation. No significant diameter reduction to account for the patient's symptoms. No evidence for intracranial aneurysm or high-grade stenosis. Fasting a.m. lipid panel cholesterol 187, LDL 124, HDL 45, triglycerides 83. Hemoglobin A1c B12 434, folate 17.50, TSH 2.05. Vitamin D is low 11.9. We will start vitamin D replacement. Await TRICIA, [place], AAN level. Optimize control of blood pressure. Continue aspirin [address] Noble. Cardiology input appreciated for PFO noted on 2D echo. They're feeling it is incidental findings, and will follow patient outpatient. PT, OT, speech therapy DVT prophylaxis: Lovenox 40 mg subcu daily Upon discharge, needs to follow-up with the neurologist as an outpatient within 2 to 3 weeks. Plan discussed with the patient, his mother was at bedside and his aunt. Also discussed with primary team. Spent total of 45 on care. Time with Patient: Greater than 30
[2024-11-12 16:56] LABS: Glucose,Whole Blood 135 mg/dL (70-110)
[2024-11-12] MEDS: PANTOPRAZOLE 40 MG TABLET PO SCH (17:23)
[2024-11-12 21:29] LABS: Glucose,Whole Blood 256 mg/dL (70-110)
[2024-11-13 06:26] LABS: Glucose,Whole Blood 109 mg/dL (70-110)
[2024-11-13 08:34] LABS: HCT 40.4 % (39.6-50.0); HGB 12.9 g/dL (13.0-17.0); MCH 29.9 pg (27.0-32.0); MCHC 31.9 g/dL (32.0-37.0); MCV 93.5 FL (80.0-97.0); NRBC Per 100 WBC 0 X 10*3/uL (0.00-0.01); Platelet Count 323 X 10*3/uL (140-440); RBC 4.32 X 10*6/uL (4.40-5.60); RDW 13.1 % (11.5-14.5); WBC 19.83 X 10*3/uL (4.50-10.00)
[2024-11-13 08:43] LABS: Albumin 3.8 g/dL (3.8-4.9); BUN/Creat Ratio 19.56 Ratio (12.00-20.00); Blood Urea Nitrogen 17.6 mg/dL (9.0-27.0); Carbon Dioxide 25.8 mmol/L (21.6-31.8); Chloride 106 mmol/L (96-109); Glucose 125 mg/dL (70-110); Magnesium 1.9 mg/dL (1.5-2.4); Potassium 4.3 mmol/L (3.5-5.5); Sodium 143 mmol/L (135-145); Total Protein 5.7 g/dL (6.2-8.2)
[2024-11-13 08:44] LABS: ALT 32 U/L (10-49); AST 18 U/L (14-35); Alkaline Phosphatase 49 U/L (41-126); Globulin 1.9 g/dL (1.6-3.3); Total Bilirubin <0.2 mg/dL (0.3-1.2)
[2024-11-13 11:24] LABS: Glucose,Whole Blood 119 mg/dL (70-110)
--- NOTE | 2024-11-13 14:00 | MR ---
EXAMINATION TYPE: MR cspine/tspine wo/w con DATE OF EXAM: 11/13/2024 1:30 PM COMPARISON: 11/10/2024.. CLINICAL INDICATION: Male, 34 years old with history of Probable MS; PHH, MS, Neuro deficit, acute TECHNIQUE: Multi planar, multi sequence imaging was performed utilizing: T1-weighted, T2-weighted, a nd turbo inversion recovery imaging of the cervical and thoracic spine. IV Contrast: 11 mL Gadobutrol (None, if empty) FINDINGS: CERVICAL: Alignment: The cervical vertebral bodies have preserved heights. Alignment is within normal limits gi zoë patient positioning. Bones: Bone signal is within normal limits. No abnormal bone marrow edema on inversion recovery seque nces. Cord: Focus of abnormal cord signal left dorsal columns at the level of C2-C3 measuring 3 x 4 mm and anterior lateral spinal cord at the level C5 superior endplate measuring 3 mm on axial imaging series 701 image 32 . The remainder of the spinal cord is unremarkable with regards to their signal intensi ty and morphology. Discs: Intervertebral disc signal is maintained. C2-C3: No significant disc pathology. The spinal canal is patent. No neural foraminal stenosis. C3-C4: No significant disc pathology. The spinal canal is patent. No neural foraminal stenosis. C4-C5: No significant disc pathology. The spinal canal is patent. No neural foraminal stenosis. C5-C6: No significant disc pathology. The spinal canal is patent. No neural foraminal stenosis. C6-C7: No significant disc pathology. The spinal canal is patent. No neural foraminal stenosis. C7-T1: No significant disc pathology. The spinal canal is patent. No neural foraminal stenosis. THORACIC: No evidence significant spinal canal or neural foraminal stenosis. Spinal cord is within no rmal limits. There is a 21 mm T7 vertebral body high T1 signal cysts/high T2 signal probable vertebra l body hemangioma. No abnormal cord signal or abnormal postcontrast enhancement. Other: None. IMPRESSION: 1. Subtle abnormal cord signal left dorsal columns at the level C2-C3 and superior endplate of C5 an terior laterally to the right. No enhancement visualized on postcontrast imaging findings could be co mpatible with demyelination. No abnormal enhancement. 2. No evidence for demyelination in the thoracic spine however evaluation slightly limited due to mo tion 3. No definitive evidence of disc herniation or significant spinal canal stenosis. [facility], , 11/13/2024 1:57 PM
--- NOTE | 2024-11-13 16:07 | P.PN ---
Subjective Progress Note Date: 11/13/24 Hospital course: Patient is a pleasant 34-year-old male with a past medical history of anxiety with depression, hernia repair in 2011 and nicotine use via vaping. He presented to the emergency department on 11/09/2024 as instructed by his PCP secondary to tingling in bilateral lower extremities and weakness in left upper and lower extremity. His family also reporting slurred speech. On arrival to our facility, patient underwent evaluation in the emergency department. Initial NIHSS score was 5. Vital signs upon arrival show blood pressure 154/91, heart r ate 85, respiratory rate 18, temp 98.1 F, and SpO2 of 90% on room air. EKG was completed showing normal sinus rhythm with occasional PVC. No noted T wave or ST abnormality showing no signs of acute ischemia upon personal review and interpretation. CT head completed negative for acute intracranial hemorrhage. Chest x-ray negative for acute cardiopulmonary process. CTA head and neck completed negative for acute intracranial process showing no evidence of hemodynamically significant stenosis at carotid bifurcations. Patient admitted under our services with consultation to neurology. Echocardiogram completed showing a normal preserved EF of 50 to 55% with mild mitral, tricuspid, and triv ial aortic insufficiency, no significant pulmonary hypertension and bubble study suggesting a possible PFO with bvtvk-kl-ffng shunt. TSH 0.050., Lipid profile unremarkable. Cardiology consulted for PFO and evaluation for SOHAIL. MRI completed showing scattered white matter lesions most prominently within the periventricular white matter with additional subcortical white matter and danny lesions, periventricular white matter lesions demonstrate a Alvarez finger appearance highly suggestive of demyelination concerning for multiple sclerosis and a right mastoid effusion. MRI brain with contrast then completed showing redemonstration of subcortical and periventricular white matter with FLAIR hyperintense signal lesions and open ring incomplete enhancement involving the left parietal periventricular white matter lesion most consistent with active demyelination. Physical exam: Patient seen and fully evaluated at bedside this morning. Patient was in room sitting in recliner at time of assessment. He reports having a headache this morning but stated it was only temporary and lasted a few minutes before resolving. He describes the headache as a throbbing sensation to left side of head. He denied having any focal deficits including difficulties with speech, dysphagia, or experiencing any numbness/tingling/weakness in his extremities at this time. Patient scheduled for MRI cervical and thoracic spine later today. Vital signs reviewed and stable. General: Nontoxic, no distress and appears stated age. Derm: Skin warm and dry, normal coloration for ethnicity. Head: Atraumatic, normocephalic and symmetric. Eyes: EOM's intact, no lid lag, and anicteric sclera Mouth: no lip lesions, mucus membranes moist Cardiovascular: regular rate and rhythm with normal S1S2, no murmur, positive posterior tibial pulses bilaterally, and cap refill < 2 seconds. Lungs: Respirations even, regular, and unlabored on room air. Lungs CTA bilaterally, no rhonchi, no rales, no wheezing, and no accessory muscle usage. Abdominal: soft, nontender to palpation, no guarding, no appreciable organomegaly Ext:. No gross muscle atrophy, no edema, no contractures. Movement and sensation is equal and intact. Neuro: Speech clear, face symmetrical and CN II-XII grossly intact with no noted focal neuro deficits Psych: Alert and oriented to person, place, time, and situation. Appropriate and pleasant affect. Assessment and Plan of Care: Scattered white matter lesions, concerning for acute demyelination process such as MS Left upper and lower extremity weakness with slurred speech. Likely secondary to above. Abnormal echocardiogram, concerns for PFO with avkec-lq-lbmk shunt -Neurology following, discussed in detail with neurologist, Dr. Emery. Patient to continue high-dose IV steroids with Solu-Medrol 1000 mg daily x 5 days and scheduled for MRI cervical/thoracic spine -Solu-Medrol 1000 mg IV PB daily (day 4 of 5) -Cardiology evaluated for PFO and evaluation for SOHAIL. Cardiology stated no need for further workup and clearing pt from their perspective. -Continue neuro checks every 4 hours and as needed -Continue aspirin 81 mg daily and atorvastatin 40 mg daily -PT/OT and speech and language pathologist consulted for evaluation. -Fall precautions and provide pt with assistance as needed -MRI cervical and thoracic spine to be completed. Hyperglycemia in the setting of high-dose steroid use -Hemoglobin A1c 5.3%. -Secondary to high-dose steroid usage resulting in elevated blood glucose levels, will continue glycemic protocol with Humalog sliding scale. Leukocytosis -Believed to be likely reactive secondary to high-dose steroids. No signs of acute infection Hypercalcemia -Hypercalcemia resolved with IV fluid hydration. Current calcium 9.6. Anxiety with depression -Continue Wellbutrin 150 mg daily. -Order placed for Xanax 0.5 mg 3 times daily as needed for anxiety. Nicotine dependence -Patient with longstanding history of nicotine use via smoking reports quit smoking 4 months ago and now nicotine dependent via vaping. Strongly recommend smoking cessation. Order placed for nicotine patch 14 mg daily. Data and imaging reviewed: -Morning labs reviewed showing leukocytosis with WBC count of 19.83 and hemoglobin slightly low at 12.9. BMP unremarkable. Blood glucose 125. Liver profile normal findings. Magnesium 1.9.. -Vital signs reviewed. Blood pressure 110/68, heart rate 60, respiratory rate 16, temp 97.8 F, and SpO2 100% on room air. CODE STATUS: Full code DVT prophylaxis: Lovenox Discussed with: Patient, RN, and neurologist Anticipated discharge date: Pending clinical course Anticipated discharge place: Home Patient was seen independently by Nurse Pracitioner. This document was prepared using [employer] dictation software. Please allow for errors in security services manager, while rare they do occur. Uri Wolff NP rendered care for this patient independently, reviewed the findings and plan as documented in the note above and agree with plan. I did not physically speak with or examine the patient on this date. Objective - Vital Signs Vital signs: Vital Signs Temp 97.4 F L 11/13/24 02:19 Pulse 40 L 11/13/24 02:19 Resp 17 11/13/24 02:19 BP 102/50 11/13/24 02:19 Pulse Ox 95 11/13/24 02:19 FiO2 Intake & Output 11/12/24 11/13/24 11/13/24 18:59 06:59 18:59 Intake Total 3810 Balance 3810 Weight 113.5 kg Intake: Intake, IV Titration 850 Amount Sodium Chloride 0.9% 1, 600 000 ml @ 75 mls/hr IV . [id number] STEFANIE Rx#:[id number] methylPREDNISolone SOD 250 SUCCIN 1,000 mg In Sodium Chloride 0.9% 250 ml @ 250 mls/hr IVPB DAILY STEFANIE Rx#:[id number] Oral 2960 Other: Voiding Method Toilet # Voids 4 3 - Labs CBC & Chem 7: 11/13/24 03:14 11/13/24 03:14 Labs: Abnormal Lab Results - Last 24 Hours (Table) 11/12/24 11/12/24 11/12/24 Range/Units 03:15 03:15 11:13 WBC 26.29 H (4.50-10.00) X 10*3/uL RBC (4.40-5.60) X 10*6/uL Hgb (13.0-17.0) g/dL MCHC 31.8 L (32.0-37.0) g/dL Anion Gap 14.50 H (4.00-12.00) mmol/L Glucose 183 H (70-110) mg/dL POC Glucose (mg/dL) 144 H (70-110) mg/dL Total Bilirubin <0.2 L (0.3-1.2) mg/dL 11/12/24 11/12/24 11/13/24 Range/Units 16:50 21:27 03:14 WBC 19.83 H (4.50-10.00) X 10*3/uL RBC 4.32 L (4.40-5.60) X 10*6/uL Hgb 12.9 L (13.0-17.0) g/dL MCHC 31.9 L (32.0-37.0) g/dL Anion Gap (4.00-12.00) mmol/L Glucose (70-110) mg/dL POC Glucose (mg/dL) 135 H 256 H (70-110) mg/dL Total Bilirubin (0.3-1.2) mg/dL
[2024-11-13 16:51] LABS: Glucose,Whole Blood 196 mg/dL (70-110)
--- NOTE | 2024-11-13 17:07 | P.PN ---
Subjective Progress Note Date: 11/13/24 I am following up with the patient. And he continues to be doing well. He denies any new neurological issues. Today is day 4 out of 5 of IV steroids. Objective - Vital Signs Vital signs: Vital Signs Temp 97.5 F L 11/13/24 14:00 Pulse 63 11/13/24 14:00 Resp 16 11/13/24 14:00 BP 132/75 11/13/24 14:00 Pulse Ox 99 11/13/24 14:00 FiO2 Intake & Output 11/12/24 11/13/24 11/13/24 18:59 06:59 18:59 Intake Total 3810 200 Balance 3810 200 Weight 113.5 kg Intake: Intake, IV Titration 850 Amount Sodium Chloride 0.9% 1, 600 000 ml @ 75 mls/hr IV . [id number] STEFANIE Rx#:[id number] methylPREDNISolone SOD 250 SUCCIN 1,000 mg In Sodium Chloride 0.9% 250 ml @ 250 mls/hr IVPB DAILY STEFANIE Rx#:[id number] Oral 2960 200 Other: Voiding Method Toilet # Voids 4 3 3 - Exam General: Patient is sitting in a recliner chair and he is not in acute distress Neuro: Patient is awake alert oriented to self place and time. Is following simple commands. No aphasia Pupils are round, 4mm and reactive to light. Visual rodas are full to confrontation. No facial weakness. Tongue is midline and moves side to side without difficulty. No dysarthria Motor strength is 5 out of 5 throughout. Normal tongue and bite. Sensation is normal to touch throughout. Normal finger to nose throughout. - Labs CBC & Chem 7: 11/13/24 03:14 11/13/24 03:14 Labs: Abnormal Lab Results - Last 24 Hours (Table) 11/12/24 11/13/24 11/13/24 Range/Units 21:27 03:14 03:14 WBC 19.83 H (4.50-10.00) X 10*3/uL RBC 4.32 L (4.40-5.60) X 10*6/uL Hgb 12.9 L (13.0-17.0) g/dL MCHC 31.9 L (32.0-37.0) g/dL Glucose 125 H (70-110) mg/dL POC Glucose (mg/dL) 256 H (70-110) mg/dL Total Bilirubin <0.2 L (0.3-1.2) mg/dL Total Protein 5.7 L (6.2-8.2) g/dL 11/13/24 11/13/24 Range/Units 11:23 16:50 WBC (4.50-10.00) X 10*3/uL RBC (4.40-5.60) X 10*6/uL Hgb (13.0-17.0) g/dL MCHC (32.0-37.0) g/dL Glucose (70-110) mg/dL POC Glucose (mg/dL) 119 H 196 H (70-110) mg/dL Total Bilirubin (0.3-1.2) mg/dL Total Protein (6.2-8.2) g/dL Assessment and Plan Assessment: * SOFTWARE ENGINEERING ASSOCIATE MANAGER demyelination, 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 Patient has presented with intermittent numbness and tingling of the left side of the body, with some weakness. Acute stroke ruled out. MRI of the brain revealed multiple areas of subcortical and periventricular white matter lesions, some of them perpendicular to the lateral ventricles consistent with Alvarez's fingers. One of the lesion was enhancing, but was on the ipsilateral side of the symptoms. Overall MRI pattern is highly suggestive of multiple sclerosis. * Ex tobacco use * Currently vapes Plan: MRI of the brain without contrast revealed no evidence of intracranial mass or acute/subacute infarct. Scattered white matter lesions, most prominently within the periventricular white matter with additional subcortical white matter and danny lesions. The periventricular white matter lesions demonstrate an Alvarez finger appearance, highly suggestive of demyelination including multiple sclerosis versus other etiologies. Further workup is recommended. Right mastoid effusion. I personally reviewed MRI, agree with the findings. MRI of the brain with contrast revealed redemonstration of subcortical and periventricular white matter FLAIR hyperintense signal lesions. There is open drink incomplete enhancement involving the left parietal periventricular white matter lesion, most consistent with active demyelination. I presently reviewed MRI, agree with the findings. This active lesion is probably asymptomatic, as the symptoms are on the ipsilateral side. MRI cervical thoracic is reported as subtle abnormal cord signal in the left dorsal column level C2-C3 and the superior margin of C5 laterally to the right. No enhancement visualized postcontrast image finding could be compatible with demyelination. No abnormal enhancement. No evidence for demyelinating thoracic spine however evaluation slightly limited due to motion. Continue Solu-Medrol 1 g IV PB daily for 5 days. Today is day #4. 2-D echo revealed normal LV size, preserved systolic function with EF 55%. Borderline LVH. No obvious regional wall motion abnormalities. Normal left atrial size. Positive agitated saline bubble study for [id number] shunt with Valsalva. CTA head and neck showed: No evidence for hemodynamically significant stenosis at the carotid bifurcation. No significant diameter reduction to account for the patient's symptoms. No evidence for intracranial aneurysm or high-grade stenosis. Fasting a.m. lipid panel cholesterol 187, LDL 124, HDL 45, triglycerides 83. Hemoglobin A1c B12 434, folate 17.50, TSH 2.05. Vitamin D is low 11.9. We will start vitamin D replacement. Lyme is negative. Await TRICIA, ANA level. I also ordered other mimickers which I feel unlikely SSA/SSB, rheumatoid factor, HTLV 1/2, HIV, ESR. Optimize control of blood pressure. From a neurologic perspective I do not see any use of aspirin since the patient does not have a stroke and his lesions are due to demyelinating disease/MS Cardiology input appreciated for PFO noted on 2D echo. They're feeling it is incidental findings, and will follow patient outpatient. PT, OT, speech therapy DVT prophylaxis: Lovenox 40 mg subcu daily Upon discharge, needs to follow-up with the neurologist as an outpatient within 2 to 3 weeks. Plan discussed with the patient. Time with Patient: Less than 30
[2024-11-13 21:10] LABS: Glucose,Whole Blood 184 mg/dL (70-110)
[2024-11-14 06:22] LABS: Glucose,Whole Blood 118 mg/dL (70-110)
[2024-11-14 08:18] LABS: HCT 41.8 % (39.6-50.0); HGB 13.6 g/dL (13.0-17.0); MCH 30.4 pg (27.0-32.0); MCHC 32.5 g/dL (32.0-37.0); MCV 93.3 FL (80.0-97.0); Mean Platelet Volume 10.6 FL (9.5-12.2); NRBC Per 100 WBC 0 X 10*3/uL (0.00-0.01); Platelet Count 294 X 10*3/uL (140-440); RBC 4.48 X 10*6/uL (4.40-5.60); RDW 13.1 % (11.5-14.5); WBC 17.53 X 10*3/uL (4.50-10.00)
[2024-11-14 08:39] VITALS: BP 119/78; PULSE 75; RESP 16; TEMP 97.6
[2024-11-14 08:52] LABS: ALT 35 U/L (10-49); AST 19 U/L (14-35); Albumin 3.6 g/dL (3.8-4.9); Alkaline Phosphatase 47 U/L (41-126); BUN/Creat Ratio 22.12 Ratio (12.00-20.00); Blood Urea Nitrogen 17.7 mg/dL (9.0-27.0); Chloride 107 mmol/L (96-109); Glucose 136 mg/dL (70-110); Magnesium 1.9 mg/dL (1.5-2.4); Sodium 142 mmol/L (135-145); Total Bilirubin <0.2 mg/dL (0.3-1.2); Total Protein 5.6 g/dL (6.2-8.2)
--- NOTE | 2024-11-14 11:02 | P.DS ---
Providers Date of admission: 11/09/24 22:34 Expected date of discharge: 11/14/24 Attending physician: Luis Lovell MD Consults: 11/09/24 22:31 Consult Physician Urgent Consulting Provider: Philipp Noble Consult Reason/Comments: acute left sided numbness, dysarthria, r/o cva Do you want consulting provider notified?: Yes 11/10/24 16:09 Consult Physician Routine Consulting Provider: Peng Jiang Consult Reason/Comments: PFO on 2D echo. Do you want consulting provider notified?: Yes Primary care physician: Cassia Langley MD Hospital Course: Discharge Diagnosis: Scattered white matter lesions, concerning for acute demyelination process, 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 Left upper and lower extremity weakness with slurred speech. Likely secondary to above. Abnormal echocardiogram, concerns for PFO with [id number] shunt. Cardiology evaluated for PFO and evaluation for SOHAIL. Cardiology stated no need for further workup and clearing pt from their perspective. Hyperglycemia in the setting of high-dose steroid use. Hemoglobin A1c 5.3%. Leukocytosis. Believed to be likely reactive secondary to high-dose steroids. No signs of acute infection Hypercalcemia Hypercalcemia resolved with IV fluid hydration. Current calcium 9.0. Anxiety with depression. Continue Wellbutrin 150 mg daily. Nicotine dependence Hospital course: Patient is a pleasant 34-year-old male with a past medical history of anxiety with depression, hernia repair in 2011 and nicotine use via vaping. He presented to the emergency department on 11/09/2024 as instructed by his PCP secondary to tingling in bilateral lower extremities and weakness in left upper and lower extremity. His family also reporting slurred speech. On arrival to our facility, patient underwent evaluation in the emergency department. Initial NIHSS score was 5. Vital signs upon arrival show blood pressure 154/91, heart rate 85, respiratory rate 18, temp 98.1 F, and SpO2 of 90% on room air. EKG was completed showing normal sinus rhythm with occasional PVC. No noted T wave or ST abnormality showing no signs of acute ischemia upon personal review and interpretation. CT head completed negative for acute intracranial hemorrhage. Chest x-ray negative for acute cardiopulmonary process. CTA head and neck co mpleted negative for acute intracranial process showing no evidence of hemodynamically significant stenosis at carotid bifurcations. Patient admitted under our services with consultation to neurology. Echocardiogram completed showing a normal preserved EF of 50 to 55% with mild mitral, tricuspid, and trivial aortic insufficiency, no significant pulmonary hypertension and bubble study suggesting a possible PFO with [id number] shunt. TSH 0.050., Lipid profile unremarkable. Cardiology consulted for PFO and evaluation for SOHAIL. MRI completed showing scattered white matter lesions most prominently within the periventricular white matter with additional subcortical white matter and danny lesions, periventricular white matter lesions demonstrate a Alvarez finger appearance highly suggestive of demyelination concerning for multiple sclerosis and a right mastoid effusion. MRI brain with contrast then completed showing redemonstration of subcortical and periventricular white matter with FLAIR hyperintense signal lesions and open ring incomplete enhancement involving the left parietal periventricular white matter lesion most consistent with active demyelination. MRI cervical and thoracic spine completed showing subtle abnormal cord signal left dorsal columns at the level of C2-C3 and superior endplate of C5 anterior laterally to the right no enhancement visualized on postcontrast imaging could be compatible with demyelination, and no evidence of demyelination in the thoracic spine however evaluation slightly limited due to motion. Patient completed 5-day course of IV Solu-Medrol and reports resolution of symptoms. 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 Patient provided with contact information for local neurologist as well as a neurologist closer to his home residence. Patient denies having any questions, needs, complaints, or concerns at this time. He has been cleared by neurology and is medically optimized for discharge at this time. Physical exam: Vital signs reviewed and stable. General: Nontoxic, no distress and appears stated age. Derm: Skin warm and dry, normal coloration for ethnicity. Head: Atraumatic, normocephalic and symmetric. Eyes: EOM's intact, no lid lag, and anicteric sclera Mouth: no lip lesions, mucus membranes moist Cardiovascular: regular rate and rhythm with normal S1S2, no murmur, positive posterior tibial pulses bilaterally, and cap refill < 2 seconds. Lungs: Respirations even, regular, and unlabored on room air. Lungs CTA bilaterally, no rhonchi, no rales, no wheezing, and no accessory muscle usage. Abdominal: soft, nontender to palpation, no guarding, no appreciable organomegaly Ext:. No gross muscle atrophy, no edema, no contractures. Movement and sensation is equal and intact. Neuro: Speech clear, face symmetrical and CN II-XII grossly intact with no noted focal neuro deficits Psych: Alert and oriented to person, place, time, and situation. Appropriate and pleasant affect. A total of 35 minutes of time were spent preparing this complex discharge summary. Pt was discharged on 11/14/2024 at 11:01 AM. Patient was seen independently by Nurse Practitioner. This document was prepared using [employer] dictation software. Please allow for errors in flat sorter processor while rare they do occur. Uri Wolff NP rendered care for this patient independently, reviewed the findings and plan as documented in the note above. I did not physically speak with or examine the patient on this date. Patient Condition at Discharge: Stable Plan - Discharge Summary Discharge Rx Participant: Yes New Discharge Prescriptions: Continue buPROPion XL [Wellbutrin XL] 150 mg PO DAILY Hydrocortisone Cream [Hydrocortisone 2.5% Cream] 1 applic TOPICAL BID PRN PRN Reason: skin issues Multivit-Mins/Iron/Folic/Lycop [Centrum Men's Tablet] 1 tab PO DAILY Magnesium 500 mg PO BID Ginseng Complex 1 cap PO DAILY FLUoxetine HCL [PROzac] 10 mg PO DIRECTED Triamcinolone 0.1% Cream [Kenalog 0.1% Cream] 1 applicatio TOPICAL BID PRN PRN Reason: skin issues Ketoconazole 2% Shampoo [Nizoral] 1 applic TOPICAL Q2D Fexofenadine HCl [Huong Allergy] 180 mg PO BID Wilda 500 mg PO DAILY Discharge Medication List FLUoxetine HCL [PROzac] 10 mg PO DIRECTED 11/09/24 [History] Fexofenadine HCl [Huong Allergy] 180 mg PO BID 11/09/24 [History] Wilda 500 mg PO DAILY 11/09/24 [History] Ginseng Complex 1 cap PO DAILY 11/09/24 [History] Hydrocortisone Cream [Hydrocortisone 2.5% Cream] 1 applic TOPICAL BID PRN 11/09/24 [History] Ketoconazole 2% Shampoo [Nizoral] 1 applic TOPICAL Q2D 11/09/24 [History] Magnesium 500 mg PO BID 11/09/24 [History] Multivit-Mins/Iron/Folic/Lycop [Centrum Men's Tablet] 1 tab PO DAILY 11/09/24 [History] Triamcinolone 0.1% Cream [Kenalog 0.1% Cream] 1 applicatio TOPICAL BID PRN 11/09/24 [History] buPROPion XL [Wellbutrin XL] 150 mg PO DAILY 11/09/24 [History] Follow up Appointment(s)/Referral(s): Richie Porter MD [REFERRING] - 1 Week (office will call with appointment time) Cassia Langley MD [Primary Care Provider] - 11/21/24 1:30 pm Patient Instructions/Handouts: Multiple Sclerosis (DC) Activity/Diet/Wound Care/Special Instructions: Activity: As tolerated. Take breaks as needed. Diet: Heart healthy and carb consistent diet. Special Instructions: Discussed with your neurologist, Dr. Emery stating no need for steroid taper. You are cleared from neurology goal standpoint for discharge recommending outpatient follow-up with a neurologist at their first available appointment. Dr. Hutchinson information has been provided to you and also Dr. Eddie Carmen is a neurologist in [place] that you may also call for appointment, office information as follows: Dr. Eddie Carmen [address] [place], [place] [address] Office: [phone] Thank you for allowing us to participate in your care, it was truly a pleasure having you for our patient!!! Discharge Disposition: HOME SELF-CARE
[2024-11-14 11:23] LABS: Glucose,Whole Blood 124 mg/dL (70-110)
[2024-11-14 12:28] LABS: HIV 2 AB Non-Reactive (Non-Reactive); HIV AB P24 Non-Reactive (Non-Reactive); HIV P24 AG Non-Reactive (Non-Reactive)
[2024-11-16 19:04] LABS: ANA Pattern Speckled
[2024-11-16 19:05] LABS: ANA Pattern Speckled
== END 2024-11-14 12:42 | disposition home or self-care (01) | DRG 59 ==
LOC: EC 18:20 → OBSVTOIN 22:34 → 3SCARD 22:34 → 4SSUR 11-11 08:55
PROVIDERS: ADMIT Internal Medicine; ATTEND Internal Medicine
DX: G35 Multiple sclerosis (principal); Q21.12 Patent foramen ovale; G81.94 Hemiplegia, unspecified affecting left nondominant side; T38.0X5A Adverse effect of glucocorticoids and synthetic analogues, initial encounter; R47.1 Dysarthria and anarthria; R20.2 Paresthesia of skin; F17.290 Nicotine dependence, other tobacco product, uncomplicated; R47.81 Slurred speech; I49.3 Ventricular premature depolarization; F41.8 Other specified anxiety disorders; D72.829 Elevated white blood cell count, unspecified; E83.52 Hypercalcemia; Z79.899 Other long term (current) drug therapy; X58.XXXA Exposure to other specified factors, initial encounter; Z87.19 Personal history of other diseases of the digestive system
CPT/HCPCS: 36415; 70450; 70496; 70498; 70551; 70552; 71046; 72156; 72157; 80053; 80061; 82164; 82306; 82550; 82607; 82746; 83036; 83735; 84443; 84484; 85025; 85027; 85610; 85652; 85730; 86038; 86039; 86235; 86431; 86618; 86790; 87390; 93005; 93306; 96361; 96365; 96366; 96372; 99291

== ENCOUNTER 2024-12-08 10:05 | Day surgery (SDC) | payer BC ==
[2024-12-08] MEDS: IV FLUID CONTINUATION 1,000 ML IV ONE (10:40)
[2024-12-08 10:55] VITALS: TEMP 97.7
[2024-12-08 11:01] LABS: Basophils # (A) 0.08 10*3/uL (0.00-0.10); Basophils % (A) 0.6 %; Eosinophils # (A) 0.14 10*3/uL (0.04-0.35); HCT 44.9 % (39.6-50.0); HGB 15.4 g/dL (13.0-17.0); Lymphocytes # (A) 2.12 10*3/uL (0.90-5.00); Lymphocytes % (A) 14.6 %; MCH 30.9 pg (27.0-32.0); MCHC 34.3 g/dL (32.0-37.0); MCV 90.2 fL (80.0-97.0); Mean Platelet Volume 9.4 fL (9.5-12.2); Monocytes # (A) 1.06 10*3/uL (0.20-1.00); Monocytes % (A) 7.3 %; Neutrophils # (A) 10.63 10*3/uL (1.80-7.70); Neutrophils % (A) 73.2 %; Platelet Count 353 10*3/uL (140-440); RBC 4.98 10*6/uL (4.40-5.60); RDW 13.3 % (11.5-14.5); WBC 14.51 10*3/uL (4.50-10.00)
[2024-12-08] MEDS: MIDAZOLAM 2 MG/2 ML VIAL IVP ONE ×2 (11:53→11:58)
[2024-12-08] MEDS: BENZOCAINE SPRAY 1 EACH MUCOUS MEM ONE (11:53)
[2024-12-08] MEDS: fentaNYL (PF) 50 MCG/ML 2 ML AMP IVP ONE ×2 (11:53→12:00)
[2024-12-08 14:12] VITALS: BP 123/67; PULSE 72; RESP 16
--- NOTE | 2024-12-12 10:41 | P.TEE ---
Date of Procedure: 12/08/24 Description of Procedure(s): Procedure performed: 1. Transesophageal Echocardiogram with color flow doppler, pulsed wave doppler and continuous wave doppler, (CPT 98511, +[id number], [id number]) 2. Moderate conscious sedation. Sedation time 8 mins. (CPT 56574) 3. Bubble Study Indications: TIA/CVA. Abnormal echocardiogram with suspected PFO Consent: I have discussed the risks, benefits and alternative therapies for the above-mentioned procedure. The patient has indicated understanding and acceptance of the risks of the procedure. Signed consent was obtained and was placed in the paper chart. Procedural Steps: Timeout was performed in usual fashion. Patient's heart rate, blood pressure, oxygen saturation and ECG were monitored. Benzocaine was sprayed liberally in the back of the throat. Bite block was placed between the jaw. 3 mg of Versed and 75 mcg of Fentanyl were administered intravenously. After achieving appropriate moderate conscious sedation, SOHAIL probe was advanced without difficulty and without any immediate complications to the esophagus. SOHAIL study was performed with color flow doppler, pulsed wave doppler and continuous wave doppler. The probe was then removed. Patient tolerated the procedure well. Patient was transferred to the post procedure area in stable and satisfactory condition. Throughout the procedure patient's heart rate, blood pressure, oxygen saturation and ECG were monitored. Total sedation time 8 mins. Complications: none FINDINGS Left Atrium: Normal Left atrial size. No evidence of mass or thrombus seen. Left Atrial Appendage: No evidence of thrombus or mass seen in CHARLES Inter atrial septum: Intact inter-atrial septum with no evidence of atrial septa l defect or patent foramen ovale. No evidence of [id number] intracardiac shunting on bubble study repeated 3 times Left Ventricle: Normal global LV size and systolic function Right Atrium: Normal overall RA size Right Ventricle: Normal global RV size and systolic function Aortic Valve: Structurally normal Trileaflet, No significant stenosis or regurgitation on color doppler assessment. Mitral Valve: Struturally normal. No evidence of prolapse. No evidence of stenosis or regurgitation on doppler assessment Pulmonic Valve: Not well visualized. Tricuspid Valve: Structurally normal. Ascending aorta, Aortic root and Aortic arch: Normal size aortic root and ascending aorta. No significant atheroma calcific plaque Descending aorta: No significant atheroma or calcific plaque No pericardial effusion CONCLUSION: No evidence of [id number] intracardiac shunting on bubble study No obvious evidence of ASD or PFO Normal LV size systolic function Normal LA size with no evidence of thrombus No significant valvular dysfunction Seymour Valencia MD, RPVI, FACC Thank you for allowing [facility] to participate in this patient's care. Feel free to reach out in case of any followup questions.
== END 2024-12-08 13:37 | disposition home or self-care (01) ==
LOC: CATHCVL 10:05
PROVIDERS: ATTEND Student in an Organized Health Care Education/Training Program
DX: R29.818 Other symptoms and signs involving the nervous system (principal); G35 Multiple sclerosis; I08.1 Rheumatic disorders of both mitral and tricuspid valves; I49.3 Ventricular premature depolarization; Z72.0 Tobacco use; Z79.899 Other long term (current) drug therapy
CPT/HCPCS: 93312; 93320; 93325; 85025; J2250; J3010

== ENCOUNTER 2024-12-12 09:12 | Day surgery (SDC) | payer BC ==
[2024-12-12] MEDS ORDERED: LACTATED RINGERS 1,000 ML IV SCH (10:03)
[2024-12-12 10:21] VITALS: RESP 18; TEMP 97
[2024-12-12 10:41] LABS: Glucose,Whole Blood 116 mg/dL (70-110)
--- NOTE | 2024-12-12 11:33 | P.PCN ---
Date of Procedure: 12/12/24 Procedure(s) Performed: Preoperative diagnosis: Multiple sclerosis Post operative diagnoses: Multiple sclerosis Procedure= lumbar puncture Anesthesia= local infiltration with lidocaine 1% 3 mL. Condition: stable Complication: none. Description of the procedure procedure risk and benefits discussed with the patient and family, consent signed. Patient and the procedure area placed in sitting position, back prepped with chlorhexidine 3 times been local infiltration of the skin and subcutaneous tissue with lidocaine 1% 3 mL for skin and subcu interstitial frustrations at L4-5 levels then 23-gauge Quincke-type needle advanced slowly at L4- 5 interlaminar space there was positive cerebro spinal fluid which was clear, no heme, no paresthesia ,total of 6.5 ML of clear cerebrospinal fluid collected in 4 different tubes 1,5-2 mL in each, then the needle removed and a Band-Aid applied and patient tolerated the procedure well without any complications.
[2024-12-12 12:41] VITALS: BP 110/68; PULSE 95
[2024-12-12 13:03] LABS: Glucose,CSF 55 mg/dL (40-70); Total Protein,CSF 48 mg/dL (12-60)
[2024-12-12 13:13] LABS: Appearance,CSF Clear; CSF Tube Number 4; Nucleated Cells, CSF 4 u/L (0-5); Red Blood Cell,CSF 227 u/L (0-10)
[2024-12-12 13:14] LABS: Red Blood Cell, CSF Crenated 0 %; Red Blood Cell, CSF Fresh 100 %
[2024-12-13 13:06] LABS: IgG - CSF 2.7 mg/dL (0.0 - 3.4); IgG Synthesis Rate 5.98 mg/day (0.00 - 3.00); IgG/Albumin Index (CSF) 1.13 (0.00 - 0.77); Immunoglobulin G 572 mg/dL (700 - 1600)
== END 2024-12-12 12:47 | disposition home or self-care (01) ==
LOC: ORPAIN 09:12
PROVIDERS: ATTEND Specialist
DX: G35 Multiple sclerosis (principal); Z79.1 Long term (current) use of non-steroidal anti-inflammatories (NSAID)
CPT/HCPCS: 62270; 82040; 82042; 82784; 82945; 83873; 83916; 84157; 88108; 89050